=== PATIENT | female | born 1970 | race Caucasian/White ===

== ENCOUNTER → 2020-09-12 16:04 | Outpatient (BNVA) | payer MEDICAID, SELFPAY | PROVIDERS: Referring Provider Family Medicine; Visit Provider Podiatrist Foot & Ankle Surgery | DX: M79.673 Pain in unspecified foot (principal) | CPT/HCPCS: 73630 ==

== ENCOUNTER 2020-09-19 13:04 | Outpatient (CLI) | payer MEDICAID, SELFPAY | END 2020-09-19 13:05 | disposition home or self-care (01) | LOC: WOUND 13:05 | PROVIDERS: Visit Provider Thoracic Surgery (Cardiothoracic Vascular Surgery) | DX: E11.621 Type 2 diabetes mellitus with foot ulcer (principal); L97.522 Non-pressure chronic ulcer of other part of left foot with fat layer exposed; Z89.511 Acquired absence of right leg below knee | CPT/HCPCS: 11042; 11045; 99214 ==

== ENCOUNTER 2020-09-21 08:04 | Outpatient (CLI) | payer MEDICAID, SELFPAY ==
--- NOTE | 2020-09-21 08:15 | CT_ITS ---
WS: [id number] CT ANGIOGRAPHY OF THE ABDOMINAL AORTA WITH RUNOFF TO THE ANKLES HISTORY: PAIN OF LEFT LOWER EXTREMITY/ PVD TECHNIQUE: Arterial injection is performed during imaging to evaluate the aorta and runoff vessels to the ankles. MIP and volume rendering imaging has also been performed. All images are reviewed. All C T scans at [facility] use at least one of these dose optimization techniques: automated ex posure control; mA and/or kV adjustment per patient size (includes targeted exams where dose is match ed to clinical indication); or iterative reconstruction. Contrast: Omnipaque 350; 95 mL IV. DLP: 1678.14 mGy.cm COMPARISON: None available. Lung bases are clear. Mild cardiomegaly. Hepatic steatosis. Moderate to severe diffuse chronic consti pation. Enlarged heterogeneous uterus. Probably due to fibroids. Abdominal aorta: Moderate atherosclerotic plaque throughout the abdominal aorta with intimal thickeni ng. AP diameter of the enhancing lumen is 7 mm distally. Celiac axis and SMA are intact with good enh ancement. Both renal arteries are normally enhancing. Inferior mesenteric artery is not visualized an d may be occluded. Both kidneys are enhancing normally. RIGHT lower extremity arterial system: Multifocal plaques throughout the RIGHT common iliac artery an d the external iliac artery. Stenosis near 50% in the distal common iliac artery. Plaque and intimal thickening in the femoral artery. High-grade stenosis involving the proximal SFA and also the proxima l deep profunda. There is extensive plaque and intimal thickening throughout the SFA to Chas's james l. At Chas's canal there is a very high-grade stenosis. Multifocal areas of plaque with high-grade occlusions in the popliteal artery. Patient is status post [id number] amputation. Multifocal areas of stenosis ranging from 55-75% in the superficial and popliteal femoral arteries. LEFT lower extremity arterial system: Calcified plaque and intimal thickening multifocal throughout t he LEFT common iliac and external iliac artery. Multifocal areas of mild stenoses. No high-grade sten osis. Heavy calcification in the distal internal iliac artery. Multifocal areas of [id number] s tenosis throughout the femoral artery and the SFA. High-grade stenosis involving the distal SFA near Chas's canal. There is dense calcification in the popliteal artery is very small caliber runoff to the ankles. Calcifications scattered throughout the peroneal artery does appear completely occluded i n places. Runoff to the foot is predominantly via the anterior and posterior tibial arteries. CT/CT angio abd aorta runof [id number] IMPRESSION: 1. High-grade stenoses in Chas's canal through the popliteal artery on the R IGHT with near occlusions. There are additional multifocal areas of stenoses th roughout the SFA greater than 50%. 2. High-grade stenosis proximal LEFT SFA, greater than 70%. 3. Additional high-grade stenosis at Chas's canal and popliteal artery on th e LEFT. 4. Below the knee amputation on the RIGHT. 5. Extensive atherosclerotic plaque with intimal thickening and narrowing of t he lumen involving the aorta. Maximum diameter of the distal abdominal aorta is 7 mm. 6. Small caliber but patent anterior and posterior tibial arteries on the LEFT with runoff to the ankle. Peroneal artery is likely occluded.
[2020-09-21] MEDS: iohexol 350 mg/mL 100 mL Btl IV (08:45)
== END 2020-09-21 08:05 | disposition home or self-care (01) ==
PROVIDERS: PCP Family Medicine; Visit Provider Family Medicine
DX: M79.605 Pain in left leg (principal); I73.9 Peripheral vascular disease, unspecified; I70.8 Atherosclerosis of other arteries; Z89.511 Acquired absence of right leg below knee
CPT/HCPCS: 75635

== ENCOUNTER 2023-12-01 05:49 | Inpatient (IN) | payer MEDICAID, SELFPAY ==
[2023-12-01] VITALS (13 sets, daily range): BP systolic 113–185; BP diastolic 59–108; PULSE 83–108; RESP 16–29; TEMP 36.3–37; O2SAT 90–98
--- NOTE | 2023-12-01 05:50 | PC.NURSE ---
Patient arrived from [facility] and settled in room 112-1, attached to telemetry, and obtained vital signs. was sent message via voalte to make him aware of patient arriving on unit.
--- NOTE | 2023-12-01 06:32 | USCV_ITS ---
IsaczulmaJacquelin Age: 53 Gender: F : 1970 Exam Date: 12/01/2023 07:37 Ordering Phys: Tamir Rubio MD Technologist: Exam [place] [facility] [place]: chf cad BP: 136 / 86 HR: 0 Rhythm: Sinus Technical Quality: Adequate MEASUREMENTS (Male / Female) Normal Values 2D ECHO LV Diastolic Diameter PLAX 5.1 cm 4.2 - 5.9 / 3.9 - 5.3 cm IVS Diastolic Thickness 0.8 cm 0.6 - 1.0 / 0.6 - 0.9 cm IVS Systolic Thickness 1.2 cm LVPW Diastolic Thickness 1.0 cm 0.6 - 1.0 / 0.6 - 0.9 cm LVPW Systolic Thickness 1.2 cm LVOT Diameter 2.1 cm LV Ejection Fraction 2D Teich 22.3 % LV Ejection Fraction MOD 2C 30.4 % LV Ejection Fraction 2C AL 0.0 % LA Diameter 3.9 cm M-MODE LA Ao Ratio MM 1.2 AV Cusp Separation MM 1.8 cm DOPPLER AV Peak Velocity 98.0 cm/s LVOT Peak Velocity 63.0 cm/s AV Area Cont Eq vti 2.4 cm squared AV Area Cont Eq pk 2.2 cm squared MV Peak Velocity 209.0 cm/s MV Area PHT 1.8 cm squared Mitral E to A Ratio 1.0 TR Peak Velocity 260.0 cm/s TR Peak Gradient 27.0 mmHg TV Peak E Velocity 95.0 cm/s Right Atrial Pressure 3.0 mmHg Pulmonary Artery Systolic Pressu 30.0 mmHg PV Peak Velocity 62.0 cm/s FINDINGS Left Ventricle Left ventricle is normal in size. LV systolic function is severely reduced with EF of 25-30%. Severe global hypokinesis. Right Ventricle Grossly normal Right Atrium Normal in size Left Atrium Dilated Mitral Valve Mitral valve annuloplasty noted. Mild to moderate mitral regurgitation. Mild to moderate mitral stenosis with mean gradient of 6.4 mmHg. Aortic Valve Structurally normal aortic valve. No significant stenosis. Mild aortic regurgitation. Tricuspid Valve Mild tricuspid regurgitation. Pulmonary artery systolic pressure is normal. Pulmonic Valve Mild pulmonic regurgitation. Pericardium Normal Aorta Normal in size IVC Not well-visualized CONCLUSIONS LV systolic function is severely reduced with EF of 25 to 30%. Left atrial dilation. Mitral valve annuloplasty noted. Mild to moderate mitral regurgitation mild to moderate mitral stenosis. Mild aortic regurgitation Mild tricuspid regurgitation Mild pulmonic regurgitation No comparison studies are available Andrés Adams MD (Electronically Signed) Final Date: 01 December 2023 11:26 S
--- NOTE | 2023-12-01 07:43 | USCV_ITS ---
Jacquelin Fry Age: 53 Gender: F : 1970 Exam Date: 12/01/2023 08:24 Ordering Phys: Matthieu Agudelo MD Technologist: Exam Location: [facility] [place] Indication: lt leg swelling PROCEDURES: Venous duplex imaging was performed in only the left lower extremity. The following venous structures were evaluated: common femoral vein, profunda vein, proximal portion of the greater saphenous vein, superficial femoral vein, and the popliteal vein. In addition, the posterior tibial and peroneal trunk were evaluated. FINDINGS: Normal 2-D Doppler and augmentation and compressibility throughout the lower extremity venous structures. Additional imaging through the proximal calf veins also reveals no thrombus. Limited evaluation of the greater saphenous vein is patent with no thrombus. CONCLUSIONS No DVT left lower extremity. Dr. Fatou Herr DO (Electronically Signed) Final Date: 01 December 2023 08:55 S
--- NOTE | 2023-12-01 07:45 | P.HP_ITS ---
Providers/Chief Complaint Admitting Physician: Matthieu Agudelo MD Primary Care Provider: Slade Brandon Chief Complaint: Chest Pain History of Present Illness Jacquelin Fry is a 53 year old female [place] [facility] [place] who reports she has been feeling short of breath for the last week, with increased coughing and wheezing. She states she is felt some swelling in her lower extremities, but not so much it seems out of the ordinary. No hemoptysis, fever, nausea, vomiting, or diarrhea. She denies ever being told she has had COPD before. She states cough is productive of some yellowish to green sputum. No chest pain or blood in stool. She reports she does smoke, but is quitting after this hospital stay. We had an extensive discussion regarding CODE STATUS, and she prefers to be DNR at this point with her given medical problems. She reports to me she has not told her daughter, which she lives with. She received IV Lasix 40 mg and IV metoprolol 5 mg at the outside facility around 2 AM in the morning. Review of Systems General: Reports: 10 or more systems reviewed and unremarkable except in HPI and below Card: Reports: swelling of feet/ankles; Denies: chest pain Resp: Reports: dyspnea, productive cough and wheezing GI: Denies: abdominal pain, nausea, vomiting, hematochezia or melena Medications/Allergies Home Medications Medication Instructions Recorded Confirmed Last Taken Type aspirin 81 mg tablet,delayed 81 mg PO DAILY 09/12/20 12/01/23 11/30/23 History release atorvastatin 40 mg tablet 40 mg PO DAILY 09/12/20 12/01/23 11/29/23 History carvedilol 6.25 mg tablet (Coreg) 6.25 mg PO BID 09/12/20 12/01/23 11/30/23 09:00 History furosemide 40 mg tablet (Lasix) 40 mg PO DAILY 09/12/20 12/01/23 11/30/23 History insulin aspart U-100 100 unit/mL See Rx Instructions .Route .COMPLEX 09/12/20 12/01/23 Unknown History subcutaneous solution (Novolog U-100 Insulin aspart) insulin glargine 100 unit/mL 22 unit SUBCUT BID 09/12/20 12/01/23 Unknown History subcutaneous solution (Lantus U-100 Insulin) losartan 25 mg tablet 25 mg PO DAILY 09/12/20 12/01/23 11/30/23 History potassium chloride 20 mEq 20 meq PO DAILY 09/12/20 12/01/23 11/30/23 History tablet,extended release ascorbic acid (vitamin C) 500 mg 500 mg PO DAILY 12/01/23 12/01/23 11/30/23 History tablet blood sugar diagnostic 12/01/23 12/01/23 Unknown History blood-glucose meter 12/01/23 12/01/23 Unknown History fenofibrate nanocrystallized 145 145 mg PO DAILY 12/01/23 12/01/23 Unknown History mg tablet lancets 12/01/23 12/01/23 Unknown History multivitamin,tx-minerals 1 tab PO DAILY 12/01/23 12/01/23 Unknown History Allergies Allergy/AdvReac Type Severity Reaction Status Date / Time codeine Allergy hives Verified 09/12/20 16:17 PFSH Acute PFSH: Medical History (Updated 12/01/23 @ 07:56 by Matthieu Agudelo MD) Hyperlipidemia Hypertension Peripheral neuropathy PAD (peripheral artery disease) Known severe disease to the left lower extremity which she reports is inoperable CAD (coronary artery disease) Diabetes Congestive heart failure Surgical History (Updated 12/01/23 @ 07:48 by Matthieu Agudelo MD) 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 H/O mitral valve repair Hx of CABG Family History Mother Diabetes Father Diabetes Social History Smoking and tobacco/nicotine status: current every day tobacco/nicotine user cigarettes Packs smoked per day: 1 Alcohol intake: current Alcohol intake frequency: holidays/special occasions only Substance/Drug Use: never Vitals/I&O/Wt Last Vital Signs Temp 97.4 F L 12/01/23 06:23 Pulse 95 12/01/23 06:23 Resp 29 H 12/01/23 06:23 BP 185/108 12/01/23 06:23 Pulse Ox 94 12/01/23 06:23 O2 Del Method Room Air 12/01/23 06:23 Weight last 48 hrs Weight 57.243 kg Physical Exam Narrative: General exam is a white female, occasional coughing fits, no distress HEENT: Atraumatic and normocephalic. Oropharynx clear Neck is supple no lymphadenopathy or thyromegaly Cardiovascular regular rate and rhythm, no murmur, borderline tachycardic. Blood pressure now 130/80 Lungs crackles at the bases, most prominent on the left. Occasional wheeze. Abdomen is soft with positive bowel sounds. No obvious organomegaly exam is deferred 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 Lower extremity is swollen from the knee down. Some abrasions are noted. Extremity is cool. Skin see findings above Neuro no focal deficits Data Other Labs: Laboratories from [place] extensively reviewed as well as x-rays. CTA demonstrates no PE, bilateral effusions, consolidations lower lobes bilaterally. White blood cell count 11.9, hemoglobin 13.4, platelet count 613 Chest x-ray congestion both lungs, bases EKG which I reviewed demonstrates heart rate of 107 consistent with sinus tachycardia, nonspecific ST-T wave changes inferiorly LFTs are normal Sodium 131, potassium 5.7 with repeat of 5.2. Chloride 94, bicarb 22, BUN 27, creatinine 1.34 Glucose 216 Magnesium 2.1 Troponin 99 with repeat of 83 Influenza and COVID-negative D-dimer 0.87 BNP 50,000 A&P Assessment and plan (1) Congestive heart failure: Patient presents with acute congestive heart failure, likely systolic Echocardiogram to clarify Lasix given in the emergency department at [place]. Continue 40 mg IV every 12 hours while watching electrolytes and kidney function closely as Lasix is a potentially renal toxic medication Obtain old echocardiogram from [facility] in [place], for comparison Troponins at [place] show no significant trend. Do not need to repeat here. She was markedly hypertensive at outside institution. I believe this was likely secondary to her heart failure. Blood pressure is coming down with treatment here. Continue beta-rae at current dose Hold ELMER inhibitor, likely briefly, until potassium is normal (2) Pneumonia: Patient presents with pneumonia. She has significant sputum production She has consolidation on chest x-ray White blood cell count slightly elevated CBC tomorrow Sputum culture Rocephin, Zithromax Blood cultures low yield currently. Reconsider if fever develops. (3) COPD with acute exacerbation: Patient has COPD exacerbation manifested by wheezing. She is a long-term smoker. Prednisone 40 mg daily DuoNeb every 4 hours Budesonide twice daily (4) Acute kidney injury: Likely cardiorenal. Cannot completely exclude chronic kidney disease Avoid anti-inflammatories Monitor renal function closely with repeat testing tomorrow (5) Hyperkalemia: Potassium was already coming down with repeat lab at the other facility Repeat potassium tomorrow Hold ARB currently Do not give any potassium currently. (6) PAD (peripheral artery disease): Patient with known severe peripheral vascular disease to left lower extremity Monitor for severe skin breakdown Continue aspirin (7) Diabetes: Continue long-acting insulin, but reduced dosing secondary to renal dysfunction. Prednisone may also increase sugar. Continue to follow closely. Plan Tobacco dependency. Encourage abstaining. She refuses nicotine patch Multiple other medical problems as outlined in past medical history Allow natural . Extensive discussion with the patient. She exhibits understanding. She still wants to be aggressively treated, just not receive CPR, intubation, etc. Lovenox for DVT prophylaxis Attestations Medical Necessity Statement*: Will require greater than 2 midnight stay for evaluation and treatment of pneumonia and CHF Diagnoses Congestive heart failure I50.9 Pneumonia J18.9 COPD with acute exacerbation J44.1 Acute kidney injury N17.9 Hyperkalemia E87.5 PAD (peripheral artery disease) I73.9 Diabetes E11.9 Time Spent (min) 61
[2023-12-01 08:27] LABS: Glucose Point of Care 186 mg/dL (70-110)
[2023-12-01] MEDS: azithromycin 500 MG in sodium chloride 0.9% 250 ML 250 MG IV (08:51)
[2023-12-01] MEDS: atorvastatin 40 mg Tablet PO (08:51)
[2023-12-01] MEDS: cefTRIAXone 1,000 MG in sodium chloride 0.9% (plus) 50 ML 100 MG IV (08:51)
[2023-12-01] MEDS: predniSONE 20 mg Tablet 40 MG PO (08:51)
[2023-12-01] MEDS: fenofibrate 145 mg Tablet PO (08:51)
[2023-12-01] MEDS: aspirin 81 mg EC Tablet PO (08:51)
[2023-12-01] MEDS: insulin lispro 100 unit/1 mL SUBCUT ×2 (08:52→17:27)
[2023-12-01] MEDS: enoxaparin 40 mg/0.4 mL Syringe SUBCUT (08:53)
[2023-12-01] MEDS: ipratropium-albuterol 3 mL Neb INHALATION ×4 (08:57→20:09)
[2023-12-01] MEDS: budesonide 0.5 mg/2 mL Neb INHALATION ×2 (08:57→20:09)
[2023-12-01] MEDS: insulin glargine 100 units/1 mL 15 UNIT SUBCUT (09:52)
[2023-12-01 12:10] LABS: Glucose Point of Care 74 mg/dL (70-110)
[2023-12-01 17:26] LABS: Glucose Point of Care 176 mg/dL (70-110)
[2023-12-01] MEDS: FUROsemide 10 mg/mL SDV 4mL 40 MG IVP (17:27)
[2023-12-01] MEDS: acetaminophen 325 mg Tablet 650 MG PO (17:27)
[2023-12-01 20:32] LABS: Glucose Point of Care 140 mg/dL (70-110)
[2023-12-02] VITALS (70 sets, daily range): BP systolic 81–125; BP diastolic 66–85; PULSE 81–124; RESP 9–41; TEMP 36.5–37.2; O2SAT 89–100
[2023-12-02 05:05] LABS: Basophils % 0.3 %; Eosinophils % 0.1 %; Hematocrit 32.1 % (36-47); Lymphocytes % 34.4 %; Mean Corpuscular HGB Conc 31.8 g/dL (30-55); Mean Corpuscular Hemoglobin 27.8 pg (27-33); Mean Corpuscular Volume 87.5 fl (85-98); Mean Platelet Volume 10.5 fL (7.4-10.4); Monocytes # 0.5 10^3/uL (0.2-0.9); Monocytes % 6.1 %; Neutrophils # 5.04 10^3/uL (1.8-7.7); Neutrophils % 58.8 %; Nucleated Red Blood Cells % 0 %; Platelet Count 492 10^3/cmm (157-399); Red Blood Count 3.67 10^6/uL (3.85-5.65); Red Cell Distribution Width 15.4 % (12.1-15.1); White Blood Count 8.58 10^3/uL (3.29-11.43)
[2023-12-02 05:37] LABS: Alanine Aminotransferase 8 U/L (0-33); Albumin Level 2.6 g/dL (3.5-5.2); Alkaline Phosphatase 95 U/L (35-105); Anion Gap 16.9 (5-19); Aspartate Amino Transferase 17 U/L (0-32); Blood Urea Nitrogen 31 mg/dL (6-20); Calcium 8.7 mg/dL (8.5-10.5); Carbon Dioxide 22 mmol/L (22-29); Chloride 97 mmol/L (98-107); Globulin 3.2 g/dL (1.3-4.6); Glomerular Filtration Rate 31.7 mL/min (90-130); Glucose 125 mg/dL (65-115); Osmolality Calculated 280 mOsm/kg (285-295); Potassium 4.9 mmol/L (3.5-5.1); Sodium 131 mmol/L (136-145); Thyroid Stimulating Hormone 1.39 uIU/mL (0.27-4.20); Total Bilirubin 0.2 mg/dL (0.15-1.2); Total Protein 5.8 g/dL (6.6-8.7)
[2023-12-02] MEDS: FUROsemide 10 mg/mL SDV 4mL 40 MG IVP (05:52)
[2023-12-02] MEDS: enoxaparin 40 mg/0.4 mL Syringe SUBCUT (06:24)
[2023-12-02] MEDS: cefTRIAXone 1,000 MG in sodium chloride 0.9% (plus) 50 ML 100 MG IV (06:24)
[2023-12-02] MEDS: ipratropium-albuterol 3 mL Neb INHALATION ×4 (06:27→20:05)
[2023-12-02] MEDS: budesonide 0.5 mg/2 mL Neb INHALATION ×2 (06:27→20:05)
[2023-12-02 06:30] LABS: Glucose Point of Care 117 mg/dL (70-110)
[2023-12-02] MEDS: azithromycin 500 MG in sodium chloride 0.9% 250 ML 250 MG IV (09:01)
[2023-12-02] MEDS: benzonatate 100 mg Capsule PO (09:02)
[2023-12-02] MEDS: fenofibrate 145 mg Tablet PO (09:02)
[2023-12-02] MEDS: predniSONE 20 mg Tablet 40 MG PO (09:02)
[2023-12-02] MEDS: aspirin 81 mg EC Tablet PO (09:02)
[2023-12-02] MEDS: atorvastatin 40 mg Tablet PO (09:02)
[2023-12-02] MEDS: insulin glargine 100 units/1 mL 15 UNIT SUBCUT (09:11)
--- NOTE | 2023-12-02 09:41 | P.PN_ITS ---
Documented by User: Jesise Borrego, ALETHA STDFLIP 12/02/23 10:05 Subjective 2 Subjective: Patient resting in bed on room air, she states that she does not feel any better this morning. She continues to have a persistent productive cough of thick yellow sputum. Denies chest pain , shortness of breath at this time. Medications: Reviewed: Yes Vitals/I&O/Wt Last Vital Signs Temp 98.1 F 12/02/23 07:09 Pulse 100 12/02/23 07:09 Resp 20 H 12/02/23 07:09 BP 115/79 12/02/23 07:09 Pulse Ox 97 12/02/23 07:09 O2 Del Method Room Air 12/02/23 07:09 12/01/23 12/02/23 12/02/23 22:59 06:59 14:59 Intake Total 480 / 1240 480 / 1720 290 / 290 Output Total 0 / 550 900 / 900 Balance 480 / 690 480 / 1170 -610 / -610 Weight last 48 hrs Weight 129 lb Weight 126 lb 3.2 oz Physical Exam 2 Narrative: General exam is a white female, occasional coughing fits, no distress HEENT: Atraumatic and normocephalic. Oropharynx clear Neck is supple, no lymphadenopathy or thyromegaly Cardiovascular regular rate and rhythm, no murmur, borderline tachycardic. Blood pressure now 130/80 Lungs diminished breath sounds bilaterally, crackles noted in left lower lobe. Abdomen is soft with positive bowel sounds. No obvious organomegaly exam is deferred 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 Lower extremity is swollen from the knee down. Some abrasions are noted. Extremity is cool. Skin see findings above Neuro no focal deficits Data 12/02/23 04:11 12/02/23 04:11 Other Labs: Awaiting UA. Micro: Microbiology 12/01/23 09:55 Gram Stain - Final Sputum - Expectorated Sputum A&P Assessment and plan (1) Congestive heart failure: Patient presents with acute congestive heart failure, likely systolic Echocardiogram completed 12/02/23 EF noted to 25%. Awaiting old echocardiogram from [facility] in [place], for comparison. Hold IVP Lasix due to Inductor Tester 1.7 and BUN 31. She was markedly hypertensive at outside institution, likely secondary to her heart failure. Blood pressure is coming down with treatment. Continue beta-rae at current dose Continue to hold ELMER inhibitor,due to worsening kidney function. (2) Pneumonia: Patient presents with pneumonia, has significant sputum production. She has consolidation on chest x-ray 12/01/23. CBC tomorrow Sputum culture pending. Continue Rocephin, Zithromax. Blood cultures low yield currently. Will reconsider if fever develops. (3) COPD with acute exacerbation: Patient has COPD exacerbation manifested by wheezing. She is a long-term smoker. Continue Prednisone 40 mg daily Continue DuoNeb every 4 hours Continue Budesonide twice daily (4) Acute kidney injury: Likely cardiorenal. Cannot completely exclude chronic kidney disease Avoid anti-inflammatories Monitor renal function closely with repeat testing tomorrow (5) Hyperkalemia: Potassium 4.9 this am 12/02. Repeat potassium tomorrow Continue to hold ARB currently Do not give any potassium currently. (6) PAD (peripheral artery disease): Patient with known severe peripheral vascular disease to left lower extremity Monitor for severe skin breakdown Continue aspirin (7) Diabetes: Continue long-acting insulin, but reduced dosing secondary to renal dysfunction. Prednisone may also increase blood glucose. Continue to follow closely. Plan Tobacco dependency. Encourage abstaining. She refuses nicotine patch Multiple other medical problems as outlined in past medical history Allow natural . Extensive discussion with the patient. She exhibits understanding. She still wants to be aggressively treated, just not receive CPR, intubation, etc. Lovenox for DVT prophylaxis Coding Level of Care Code 47693 Diagnoses Congestive heart failure I50.9 Pneumonia J18.9 COPD with acute exacerbation J44.1 Acute kidney injury N17.9 Hyperkalemia E87.5 PAD (peripheral artery disease) I73.9 Diabetes E11.9 Time Spent (min) 24 Documented by User: Matthieu Agudelo MD 12/02/23 10:10 Physical Exam 2 Narrative: General exam is a white female, occasional coughing fits, no distress HEENT: Atraumatic and normocephalic. Oropharynx clear Neck is supple, no lymphadenopathy or thyromegaly Cardiovascular regular rate and rhythm, no murmur, borderline tachycardic. Blood pressure now 130/80 Lungs diminished breath sounds bilaterally, crackles noted in left lower lobe. Abdomen is soft with positive bowel sounds. 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 Lower extremity is swollen from the knee down. Some abrasions are noted. Extremity is cool. Edema on the left is significantly better than yesterday. Data 12/02/23 04:11 12/02/23 04:11 A&P Assessment and plan (1) Congestive heart failure: Patient presents with acute congestive heart failure, likely systolic Echocardiogram completed 12/02/23 EF noted to 25%. Awaiting old echocardiogram from [facility] in [place], for comparison. Hold IVP Lasix due to Inductor Tester 1.7 and BUN 31. She appears compensated currently. She was markedly hypertensive at outside institution, likely secondary to her heart failure. Blood pressure is coming down with treatment. Continue beta-are at current dose Continue to hold ELMER inhibitor,due to worsening kidney function. (2) Pneumonia: (3) COPD with acute exacerbation: (4) Acute kidney injury: (5) Hyperkalemia: (6) PAD (peripheral artery disease): (7) Diabetes: Attestations 2 Medical Necessity Statement*: Needs continued hospitalization for IV antibiotics related to pneumonia. Diagnoses Congestive heart failure I50.9 Pneumonia J18.9 COPD with acute exacerbation J44.1 Acute kidney injury N17.9 Hyperkalemia E87.5 PAD (peripheral artery disease) I73.9 Diabetes E11.9 Time Spent (min) 24
[2023-12-02 11:28] LABS: Glucose Point of Care 190 mg/dL (70-110)
[2023-12-02] MEDS: insulin lispro 100 unit/1 mL SUBCUT ×3 (12:00→20:07)
--- NOTE | 2023-12-02 16:29 | P.CONIM_ITS ---
Providers/Reason For Consult 2 Consulting Physician/Specialty*: GUILLERMO Riley MD/cardiology Reason for Consult*: Patient with a cardiomyopathy and congestive heart failure Requesting Physician: Dr. Agudelo Attending Physician: Matthieu Agudelo MD Primary Care Provider: Slade Brandon History of Present Illness History of Present Illness Jacquelin Fry is a 53 year old female With a history of coronary disease,Status post Four-vessel coronary artery bypass surgery, complaints of progressive shortness of breath. She was found to be in congestive heart failure. Echocardiogram revealed LV ejection fraction 25%. Cardiology consult is requested for further cardiac evaluation and recommendations. This patient apparently has been at baseline state of health up until a week ago when she started having cough and respiratory infection-like symptoms. For the last 2 days, she has been having shortness of breath which has been progressively getting worse.She has no chest pain or chest tightness. She has been coughing up a lot of sputum. No fever or chills. According the patient, she had four-vessel coronary bypass surgery in 2019 at the [facility]. She also had a mitral valve repair at that time.Prior to the surgery, she presented to the hospital with complaints of congestive heart failure. Subsequent cardiacCatheterization revealed extensive coronary disease for which she underwent Coronary artery bypass surgery.The details are not available at this time.The LV ejection fraction prior to surgery also is not known at this time. Patient had a below-knee amputation on the right side for staph infection/osteomyelitis.She had a transmetatarsal amputation in 2020 for Gangrene.She has a history of diabetes for the last 15 years or so.The diabetes has been uncontrolled. She also has a history of a diabetic neuropathy and? Nephropathy.She has a history of smoking abuse and is known to have emphysema/reactive airway disease.Also has a history of dyslipidemia. She is known to have peripheral artery disease. No history of CVA. No history for any liver disease or bleeding disorders. She smoked half to 1 pack a day for 30 years or so.No alcohol abuse or any other substance abuse. I reviewed the medical records from the [facility] in [place]. Patient had a four-vessel coronary bypass surgery. She had a saphenous venous graft to the RCA andLAD. Sequential venous graft to the intermedius artery and diagonal artery. Endarterectomy of the LAD. Mitral valvuloplasty with a 28 mm annular ring. Review of Systems 2 Narrative: CONSTITUTIONAL: No fever or chills. EYES: No blurring of vision or other visual disturbances lately. ENT: No hoarseness of voice, auditory disturbances or sore throat. CARDIOVASCULAR: As mentioned above. RESPIRATORY: Productive cough, bringing evaluate sputum GASTROINTESTINAL: No hematemesis or melena. GENITOURINARY: No dysuria or hematuria. INTEGUMENTARY: No skin rashes or history of skin cancer. NEURO: No transient ischemic attacks or amaurosis. PSYCHIATRIC: No history of psychosis or major depression. HEMATOLOGIC: No bleeding disorders or significant anemia. ENDOCRINE: No history of polyuria or polydipsia. MUSCULOSKELETAL: No recent joint pain or swelling. ALLERGY/IMMUNOLOGY: As mentioned above. Medications/Allergies Home Medications Medication Instructions Recorded Confirmed Last Taken Type aspirin 81 mg tablet,delayed 81 mg PO DAILY 09/12/20 12/01/23 11/30/23 History release atorvastatin 40 mg tablet 40 mg PO DAILY 09/12/20 12/01/23 11/29/23 History carvedilol 6.25 mg tablet (Coreg) 6.25 mg PO BID 09/12/20 12/01/23 11/30/23 09:00 History furosemide 40 mg tablet (Lasix) 40 mg PO DAILY 09/12/20 12/01/23 11/30/23 History insulin aspart U-100 100 unit/mL See Rx Instructions .Route .COMPLEX 09/12/20 12/01/23 Unknown History subcutaneous solution (Novolog U-100 Insulin aspart) insulin glargine 100 unit/mL 22 unit SUBCUT BID 09/12/20 12/01/23 Unknown History subcutaneous solution (Lantus U-100 Insulin) losartan 25 mg tablet 25 mg PO DAILY 09/12/20 12/01/23 11/30/23 History potassium chloride 20 mEq 20 meq PO DAILY 09/12/20 12/01/23 11/30/23 History tablet,extended release ascorbic acid (vitamin C) 500 mg 500 mg PO DAILY 12/01/23 12/01/23 11/30/23 History tablet blood sugar diagnostic 12/01/23 12/01/23 Unknown History blood-glucose meter 12/01/23 12/01/23 Unknown History fenofibrate nanocrystallized 145 145 mg PO DAILY 12/01/23 12/01/23 Unknown History mg tablet lancets 12/01/23 12/01/23 Unknown History multivitamin,tx-minerals 1 tab PO DAILY 12/01/23 12/01/23 Unknown History Allergies Allergy/AdvReac Type Severity Reaction Status Date / Time codeine Allergy hives Verified 09/12/20 16:17 morphine Allergy ADR-Itching Verified 12/02/23 10:46 Current Medications Generic Name Dose Route Start Last Admin Trade Name Freq PRN Reason Stop Dose Admin Acetaminophen 650 mg 12/01/23 07:39 12/01/23 17:27 Acetaminophen 325 Mg Tablet PO 650 mg Q6H PRN Administration Mild/Mod Pain Or Temp >/= 101 Albuterol/Ipratropium 3 ml 12/01/23 12:00 12/02/23 16:07 Ipratropium-Albuterol 3 Ml Neb INHALATION 3 ml Q4H.RESPIRATORY CARMEN Administration Aspirin 81 mg 12/01/23 09:00 12/02/23 09:02 Aspirin 81 Mg Ec Tablet PO 81 mg DAILY CARMEN Administration Atorvastatin Calcium 40 mg 12/01/23 09:00 12/02/23 09:02 Atorvastatin 40 Mg Tablet PO 40 mg DAILY CARMEN Administration Benzonatate 100 mg 12/01/23 10:31 12/02/23 09:02 Benzonatate 100 Mg Capsule PO 100 mg TID PRN Administration COUGH Budesonide 0.5 mg 12/01/23 08:00 12/02/23 07:36 Budesonide 0.5 Mg/2 Ml Neb INHALATION Not Given BID.RESPIRATORY CARMEN Enoxaparin Sodium 40 mg 12/01/23 07:45 12/02/23 06:24 Enoxaparin 40 Mg/0.4 Ml Syringe SUBCUT 40 mg Q24H CARMEN Administration Fenofibrate 145 mg 12/01/23 09:00 12/02/23 09:02 Fenofibrate 145 Mg Tablet PO 145 mg DAILY CARMEN Administration Ceftriaxone Sodium 1,000 mg/ 50 mls @ 100 mls/hr 12/01/23 07:45 12/02/23 07:09 Sodium Chloride IV Infused Q24H CARMEN Infusion Protocol Azithromycin 500 mg/ Sodium 250 mls @ 250 mls/hr 12/01/23 07:45 12/02/23 10:05 Chloride IV Infused Q24H CARMEN Infusion Protocol Insulin Glargine 15 unit 12/02/23 09:00 12/02/23 09:11 Insulin Glargine 100 Units/1 Ml SUBCUT 15 unit DAILY CARMEN Administration Insulin Human Lispro 0 unit 12/01/23 08:00 12/02/23 12:00 Insulin Lispro 100 Unit/1 Ml SUBCUT 4 unit WM&BEDTIME CARMEN Administration Protocol Prednisone 40 mg 12/01/23 09:00 12/02/23 09:02 Prednisone 20 Mg Tablet PO 40 mg DAILY CARMEN Administration PFSH Acute 2 PFSH: Medical History Hyperlipidemia Hypertension Peripheral neuropathy PAD (peripheral artery disease) Known severe disease to the left lower extremity which she reports is inoperable CAD (coronary artery disease) Diabetes Congestive heart failure Surgical History 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 H/O mitral valve repair Hx of CABG Family History Mother Diabetes Father Diabetes Social History Smoking and tobacco/nicotine status: current every day tobacco/nicotine user cigarettes Packs smoked per day: 1 Alcohol intake: current Alcohol intake frequency: holidays/special occasions only Substance/Drug Use: never Vitals/I&O/Wt Last Vital Signs Temp 97.7 F 12/02/23 11:20 Pulse 103 H 12/02/23 16:12 Resp 16 12/02/23 16:06 BP 81/67 12/02/23 11:20 Pulse Ox 95 12/02/23 16:06 O2 Del Method Room Air 12/02/23 16:06 12/02/23 12/02/23 12/02/23 06:59 14:59 22:59 Intake Total 480 / 1720 780 / 780 Output Total 0 / 550 900 / 900 Balance 480 / 1170 -120 / -120 Weight last 48 hrs Weight 129 lb Weight 126 lb 3.2 oz Physical Exam 2 Narrative: GENERAL: The patient is alert and oriented times three. Not in any acute distress. HEENT: No significant pallor, icterus or lymphadenopathy.Oral cavity: There are no mucous membrane lesions. NECK: Trachea appears to be central. No masses noted. No JVD or thyromegaly appreciated. RESPIRATORY: Chest is symmetrical. No intercostals muscle retraction or any accessory muscle activation. There is no chest wall tenderness. Breath sounds are heard bilaterally. No rales or rhonchi heard. No evidence of any consolidation. BREASTS: Deferred. HEART: The heart sounds are normal. No S3 or S4. Short systolic murmur in the lower sternal border. No diastolic murmurs. No pericardial rub ABDOMEN: No vessel pulsations or distention. No tenderness. No organomegaly appreciated. Bowel sounds are normally heard. : Deferred. RECTAL: Deferred. LYMPHATIC: No lymphadenopathy noted in the neck. EXTREMITIES: Below-knee amputation on the right side and transmetatarsal amputation on the left side. Femoral pulses are palpable but weak bilaterally. MUSCULOSKELETAL: No acute joint deformities or swelling SKIN: There are no significant rashes or ecchymosis NEUROPSYCHIATRIC: The patient is alert and oriented x3. Appears to be in a good mood. No tremors or rigidity noted. Data 12/02/23 04:11 12/02/23 04:11 Other Labs: Laboratory Last Values WBC 8.58 10^3/uL (3.29-11.43) 12/02/23 04:11 RBC 3.67 10^6/uL (3.85-5.65) L 12/02/23 04:11 Hgb 10.20 g/dL (11.27-16.99) L 12/02/23 04:11 Hct 32.1 % (36-47) L 12/02/23 04:11 MCV 87.5 fl (85-98) 12/02/23 04:11 MCH 27.8 pg (27-33) 12/02/23 04:11 MCHC 31.8 g/dL (30-55) 12/02/23 04:11 RDW 15.4 % (12.1-15.1) H 12/02/23 04:11 Plt Count 492 10^3/cmm (157-399) H 12/02/23 04:11 MPV 10.5 fL (7.4-10.4) H 12/02/23 04:11 Neut % (Auto) 58.8 % 12/02/23 04:11 Lymph % (Auto) 34.4 % 12/02/23 04:11 Rooks % (Auto) 6.1 % 12/02/23 04:11 Eos % (Auto) 0.1 % 12/02/23 04:11 Baso % (Auto) 0.3 % 12/02/23 04:11 Neut # (Auto) 5.04 10^3/uL (1.8-7.7) 12/02/23 04:11 Lymph # (Auto) 3.0 10^3/uL (0.8-4.8) 12/02/23 04:11 Rooks # (Auto) 0.5 10^3/uL (0.2-0.9) 12/02/23 04:11 Eos # (Auto) 0.0 10^3/uL (0.0-0.8) 12/02/23 04:11 Baso # (Auto) 0.0 10^3/uL (0.0-0.1) 12/02/23 04:11 Nucleated RBC % (auto) 0 % 12/02/23 04:11 Nucleated RBCs # 0.0 /100WBC 12/02/23 04:11 Sodium 131 mmol/L (136-145) L 12/02/23 04:11 Potassium 4.9 mmol/L (3.5-5.1) 12/02/23 04:11 Chloride 97 mmol/L (98-107) L 12/02/23 04:11 Carbon Dioxide 22 mmol/L (22-29) 12/02/23 04:11 Anion Gap 16.9 (5-19) 12/02/23 04:11 BUN 31 mg/dL (6-20) H 12/02/23 04:11 Creatinine 1.7 mg/dL (0.5-0.9) H 12/02/23 04:11 GFR Calculation 31.7 mL/min (90-130) L 12/02/23 04:11 Glucose 125 mg/dL (65-115) H 12/02/23 04:11 POC Glucose 306 mg/dL (70-110) H 12/02/23 17:35 Calculated Osmolality 280 mOsm/kg (285-295) L 12/02/23 04:11 Calcium 8.7 mg/dL (8.5-10.5) 12/02/23 04:11 Magnesium 2.0 mg/dL (1.7-2.3) 12/02/23 04:11 Total Bilirubin 0.2 mg/dL (0.15-1.2) 12/02/23 04:11 AST 17 U/L (0-32) 12/02/23 04:11 ALT 8 U/L (0-33) 12/02/23 04:11 Alkaline Phosphatase 95 U/L (35-105) 12/02/23 04:11 Total Protein 5.8 g/dL (6.6-8.7) L 12/02/23 04:11 Albumin 2.6 g/dL (3.5-5.2) L 12/02/23 04:11 Globulin 3.2 g/dL (1.3-4.6) 12/02/23 04:11 TSH 1.39 uIU/mL (0.27-4.20) 12/02/23 04:11 Urine Color Yellow (Yellow) 12/02/23 16:40 Urine Appearance Clear (CLEAR) 12/02/23 16:40 Urine pH 5 (5-7) 12/02/23 16:40 Ur Specific Binford 1.015 (1.005-1.030) 12/02/23 16:40 Urine Protein 3+ (Negative) H 12/02/23 16:40 Urine Glucose (UA) 1+ (Normal) H 12/02/23 16:40 Urine Ketones Negative (Negative) 12/02/23 16:40 Urine Blood Neg (Negative) 12/02/23 16:40 Urine Nitrate Negative (Negative) 12/02/23 16:40 Urine Bilirubin Neg (Negative) 12/02/23 16:40 Urine Urobilinogen Norm mg/dL (Negative) 12/02/23 16:40 Ur Leukocyte Esterase Negative (Negative) 12/02/23 16:40 Urine RBC 0-4 /hpf (0-2) H 12/02/23 16:40 Urine WBC 0-4 /hpf (0-5) H 12/02/23 16:40 Ur Squamous Epith Cells 5-10 /hpf (0-5) H 12/02/23 16:40 Amorphous Sediment Trace /hpf 12/02/23 16:40 Urine Bacteria 1+ /hpf (NONE) H 12/02/23 16:40 Fine Granular Casts 0-4 /lpf H 12/02/23 16:40 Urine Mucus 1+ /hpf 12/02/23 16:40 Urine Yeast 1+ /hpf H 12/02/23 16:40 Micro: Microbiology 12/01/23 09:55 Gram Stain - Final Sputum - Expectorated Sputum Sputum Culture - Preliminary Other data: CT angio of the abdominal aorta with run off 1. High-grade stenoses in Chas's canal through the popliteal artery on the RIGHT with near occlusions. There are additional multifocal areas of stenoses throughout the SFA greater than 50%. 2. High-grade stenosis proximal LEFT SFA, greater than 70%. 3. Additional high-grade stenosis at Chas's canal and popliteal artery on the LEFT. 4. Below the knee amputation on the RIGHT. 5. Extensive atherosclerotic plaque with intimal thickening and narrowing of the lumen involving the aorta. Maximum diameter of the distal abdominal aorta is 7 mm. 6. Small caliber but patent anterior and posterior tibial arteries on the LEFT with runoff to the ankle. Peroneal artery is likely occluded. Echocardiogram done overnight 12/01/2023 LV systolic function is severely reduced with EF of 25 to 30%. Left atrial dilation. Mitral valve annuloplasty noted. Mild to moderate mitral regurgitation mild to moderate mitral stenosis. Mild aortic regurgitation Mild tricuspid regurgitation Mild pulmonic regurgitation No comparison studies are available A&P Assessment and plan (1) Congestive heart failure: Patient has significant drop in the LV ejection fraction from 45% in in 2020 to 25-30% now. Possibility of underlying coronary ischemia causing this is a consideration. She may be treated with IV diuretics and other symptomatic measures. He also may need to try Entresto, once the heart failure is properly treated Qualifiers: Heart failure chronicity: acute on chronic Heart failure type: systolic Qualified Code(s): I50.23 - Acute on chronic systolic (congestive) heart failure (2) PAD (peripheral artery disease): Patient had the CTA and the findings are as mentioned above. (3) Acute kidney injury: This could be an acute on chronic kidney disease. The kidney function needs to be closely monitored (4) Ischemic cardiomyopathy: LV ejection fraction was 45% in 2020. Considering the possibility of ischemia causing worsening of LV systolic function, a Myocardial perfusion imaging would be appropriate. We may consider this tomorrow. (5) Diabetic peripheral neuropathy associated with type 2 diabetes mellitus: Received management of diabetes to be appropriate (6) Dyslipidemia: Continue on the current treatment (7) COPD with acute exacerbation: Management as per the primary Plan The other problems are Anemia Generalized emaciation DNR status Consult Attestations 2 Medical Necessity Statement: Based on the results of the above and also patient's clinical progress, further recommendations will be made. Thank you for the opportunity to evaluate this patient and make these recommendations. Coding Level of Care Code 00922 Diagnoses Acute on chronic systolic congestive heart failure I50.23 Heart failure chronicity: acute on chronic Heart failure type: systolic PAD (peripheral artery disease) I73.9 Acute kidney injury N17.9 Ischemic cardiomyopathy I25.5 Diabetic peripheral neuropathy associated with type 2 diabetes mellitus E11.42 Dyslipidemia E78.5 COPD with acute exacerbation J44.1
[2023-12-02 17:38] LABS: Glucose Point of Care 293 mg/dL (70-110)
[2023-12-02 17:38] LABS: Glucose Point of Care 306 mg/dL (70-110)
[2023-12-02] MEDS: metoprolol tartrate 25 mg Tablet 12.5 MG PO (18:33)
--- NOTE | 2023-12-02 18:44 | ECG_ITS ---
[facility] Test Date: 2023-12-03 Pat Name: Jacquelin Fry Department: Room: 112 Gender: Female Sleeve Baster: : 1970 Requested By: Luli Riley Order Number: [id number] Amberly MD: Luli Riley M.D. Interpretive Statements NAME OF STUDY: LEXISCAN SESTAMIBI STRESS TEST INDICATION: CHF, PROCEDURE: At the baseline, the EKG revealed normal sinus rhythm with PVCs. Poor R wave progression. Diffuse nonspecific ST-T changes.. The baseline heart was 91 bpm with a blood pressue of 125/91 mm of Hg Lexiscan was infused over a period of 20 seconds. A total of 0.4 milligrams of Lexiscan was infused. The stress phase was continued for a total of 5 minutes. Heart rate at the end of the stress phase was 100 bpm with a blood pressure 131/76 mm of Hg. The EKG at the peak infusion revealed slightly more prominent ST-T changes. Sestamibi was injected 20 seconds after the Lexiscan infusion. Heart rate at the end of the recovery phase was 100 bpm with a blood pressure of 128/72 mm of Hg. CONCLUSION: 1. No significant EKG changes with the LexiScan infusion 2. No LexiScan induced chest pain or cardiac arrhythmia 3. Normal blood pressure and heart rate response 4. Sestamibi/sestamibi perfusion scan pending; see separate report. Electronically Signed On 12-07-2023 9:22:55 RO[address] TESTER by Luli Riley M.D. [id number]
[2023-12-02 18:51] LABS: Specific Gravity, Urine 1.015 (1.005-1.030); Urine Appearance Clear (CLEAR); Urine Color Yellow (Yellow); pH Urine 5 (5-7)
[2023-12-02 18:52] LABS: Bilirubin Urine Neg (Negative); Blood Urine Neg (Negative); Glucose Urine UA 1+ (Normal); Ketones Urine Negative (Negative); Leukocyte Esterase Urine Negative (Negative); Nitrate Urine Negative (Negative); Protein Urine 3+ (Negative); Urobilinogen Urine Norm (Negative)
[2023-12-02 19:00] LABS: Amorphous Sediment Urine TRACE /hpf; Bacteria Urine 1+ /hpf; Fine Granular Casts Urine 0-4 /lpf; Mucus Urine 1+ /hpf; RBC Urine 0-4 /hpf (0-2); WBC Urine 0-4 /hpf (0-5)
[2023-12-02 19:01] LABS: Add Urine Culture? No
[2023-12-02 20:06] LABS: Glucose Point of Care 332 mg/dL (70-110)
[2023-12-03] VITALS (28 sets, daily range): BP systolic 88–131; BP diastolic 65–95; PULSE 87–109; RESP 5–34; TEMP 36.5–36.6; O2SAT 87–100
--- NOTE | 2023-12-03 03:33 | XRR_ITS ---
PROCEDURE INFORMATION: Exam: XR Chest Exam date and time: 12/03/2023 3:45 AM Age: 53 years old Clinical indication: Cough and dyspnea; Prior surgery; Surgery date: 6+ months TECHNIQUE: Imaging protocol: Radiologic exam of the chest. Views: 1 view. COMPARISON: CT angio abd aorta runof [id number] 09/21/2020 8:31 AM FINDINGS: Lungs: There is diffuse increase in interstitial markings with infiltration of the right middle lobe and retrocardiac regions. Findings suggest apically predominant emphysematous change. Pleural spaces: There is blunting of the bilateral costophrenic angles. Heart/Mediastinum: Extensive postsurgical changes of the mediastinum. Bones/joints: Unremarkable. Other findings: There is flattening of the bilateral diaphragms. XR/XR chest 1V portable [id number] IMPRESSION: 1. Right middle lobe and retrocardiac opacification with flattening of the diaphragms and blunting of the bilateral costophrenic angles suggesting small pleural effusions. Nonspecific may represent atelectasis, aspiration, infection. 2. Findings suggest interstitial lung disease. Correlate with patient history.
[2023-12-03] MEDS: ALPRAZolam 0.5 mg Tablet PO ×2 (03:46→20:19)
[2023-12-03] MEDS: ipratropium-albuterol 3 mL Neb INHALATION ×4 (03:53→20:21)
[2023-12-03 04:33] LABS: Basophils % 0.3 %; Eosinophils % 0.1 %; Hematocrit 32.5 % (36-47); Lymphocytes # 2.9 10^3/uL (0.8-4.8); Lymphocytes % 30.6 %; Mean Corpuscular HGB Conc 31.1 g/dL (30-55); Mean Corpuscular Hemoglobin 27.5 pg (27-33); Mean Corpuscular Volume 88.6 fl (85-98); Mean Platelet Volume 10.6 fL (7.4-10.4); Monocytes # 0.5 10^3/uL (0.2-0.9); Monocytes % 5.8 %; Neutrophils # 5.85 10^3/uL (1.8-7.7); Neutrophils % 62.9 %; Nucleated Red Blood Cells % 0 %; Platelet Count 466 10^3/cmm (157-399); Red Blood Count 3.67 10^6/uL (3.85-5.65); Red Cell Distribution Width 15.6 % (12.1-15.1); White Blood Count 9.31 10^3/uL (3.29-11.43)
[2023-12-03 04:54] LABS: Blood Urea Nitrogen 39 mg/dL (6-20); Calcium 8.1 mg/dL (8.5-10.5); Carbon Dioxide 22 mmol/L (22-29); Chloride 96 mmol/L (98-107); Creatinine Clr Calc Pharmacy 36.0419; Glomerular Filtration Rate 29.7 mL/min (90-130); Glucose 179 mg/dL (65-115); Magnesium 2.2 mg/dL (1.7-2.3); Osmolality Calculated 282 mOsm/kg (285-295); Sodium 129 mmol/L (136-145)
[2023-12-03 05:01] LABS: Anion Gap 16.6 (5-19); Potassium 5.6 mmol/L (3.5-5.1)
[2023-12-03] MEDS: regadenoson 0.4 Mg/5 ml Syringe 0.400000000000000022 MG IVP (07:33)
--- NOTE | 2023-12-03 09:37 | PM.PN ---
Subjective Subjective: Jacquelin reports she is doing okay. Not short of breath and not having any chest discomfort. Did have some shortness of breath last night, received a Xanax and was better. Chest x-ray did not show any concerning changes. Cardiology has seen the patient and she is underwent a nuclear stress test today, results are pending. Medications: Reviewed: Yes Vitals/I&O/Wt Last Vital Signs Temp 97.9 F 12/03/23 03:49 Pulse 96 12/03/23 07:54 Resp 15 12/03/23 06:00 BP 125/89 12/03/23 09:00 Pulse Ox 95 12/03/23 09:00 O2 Del Method Room Air 12/03/23 03:59 12/02/23 12/03/23 12/03/23 22:59 06:59 14:59 Intake Total 360 / 1140 620 / 1760 240 / 240 Output Total 500 / 1400 0 / 1400 Balance -140 / -260 620 / 360 240 / 240 Weight last 48 hrs Weight 58.513 kg Weight 58.513 kg Physical Exam Narrative: General exam seems comfortable Neck is supple, no lymphadenopathy or thyromegaly Cardiovascular regular rate and rhythm, no murmur, borderline tachycardic. Blood pressure now 130/80 Lungs diminished breath sounds bilaterally, crackles noted in left lower lobe. Abdomen is soft with positive bowel sounds. 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 Lower extremity edema improved Data 12/03/23 04:22 12/03/23 04:22 Other Labs: Some hemolysis noted Micro: Microbiology 12/01/23 09:55 Gram Stain - Final Sputum - Expectorated Sputum Sputum Culture - Preliminary A&P Assessment and plan (1) Congestive heart failure: Patient presents with acute congestive heart failure, likely systolic Echocardiogram completed 12/02/23 EF noted to 25%. Previous echo EF around 40% done at [facility] Currently holding Lasix She was markedly hypertensive at outside institution, likely secondary to her heart failure. Blood pressure today fairly normal Carvedilol has been changed to metoprolol per cardiology Continue to hold ELMER inhibitor,due to worsening kidney function. Qualifiers: Heart failure type: systolic Heart failure chronicity: acute on chronic Qualified Code(s): I50.23 - Acute on chronic systolic (congestive) heart failure (2) Pneumonia: Patient presents with pneumonia, has significant sputum production. She has consolidation on chest x-ray 12/01/23. CBC tomorrow Sputum culture mixed bruce on prelim Continue Rocephin, Zithromax. Blood cultures low yield currently. Will reconsider if fever develops. (3) COPD with acute exacerbation: Patient has COPD exacerbation manifested by wheezing. She is a long-term smoker. Continue Prednisone 40 mg daily Continue DuoNeb every 4 hours Continue Budesonide twice daily (4) Acute kidney injury: Likely cardiorenal. Cannot completely exclude chronic kidney disease Avoid anti-inflammatories Monitor renal function closely with repeat testing tomorrow (5) Hyperkalemia: Potassium elevated this morning, but some hemolysis noted Repeat potassium Continue to hold ARB currently (6) PAD (peripheral artery disease): Patient with known severe peripheral vascular disease to left lower extremity Monitor for severe skin breakdown Continue aspirin (7) Diabetes: Continue long-acting insulin, but reduced dosing secondary to renal dysfunction. Prednisone may also increase blood glucose. Continue to follow closely. Qualifiers: Diabetes mellitus type: type 2 Diabetes mellitus halfway insulin use: without halfway use Diabetes mellitus complication status: with circulatory complication Diabetes mellitus complication detail: with other circulatory complications Qualified Code(s): E11.59 - Type 2 diabetes mellitus with other circulatory complications Plan Tobacco dependency. Encourage abstaining. She refuses nicotine patch Multiple other medical problems as outlined in past medical history Allow natural . Extensive discussion with the patient. She exhibits understanding. She still wants to be aggressively treated, just not receive CPR, intubation, etc. Lovenox for DVT prophylaxis Attestations Medical Necessity Statement*: Needs continued hospital stay for IV antibiotics related to pneumonia Diagnoses Acute on chronic systolic congestive heart failure I50.23 Heart failure type: systolic Heart failure chronicity: acute on chronic Pneumonia J18.9 COPD with acute exacerbation J44.1 Acute kidney injury N17.9 Hyperkalemia E87.5 PAD (peripheral artery disease) I73.9 Type 2 diabetes mellitus with other circulatory complication, without long-term current use of insulin E11.59 Diabetes mellitus type: type 2 Diabetes mellitus adjunct faculty for medical terminology insulin use: without adjunct faculty for medical terminology use Diabetes mellitus complication status: with circulatory complication Diabetes mellitus complication detail: with other circulatory complications Time Spent (min) 25
[2023-12-03] MEDS: enoxaparin 40 mg/0.4 mL Syringe SUBCUT (10:58)
[2023-12-03] MEDS: predniSONE 20 mg Tablet 40 MG PO (10:59)
[2023-12-03] MEDS: metoprolol tartrate 25 mg Tablet 12.5 MG PO ×2 (10:59→20:18)
[2023-12-03] MEDS: aspirin 81 mg EC Tablet PO (10:59)
[2023-12-03] MEDS: atorvastatin 40 mg Tablet PO (11:00)
[2023-12-03] MEDS: fenofibrate 145 mg Tablet PO (11:00)
[2023-12-03] MEDS: insulin glargine 100 units/1 mL 15 UNIT SUBCUT (11:00)
[2023-12-03] MEDS: azithromycin 500 MG in sodium chloride 0.9% 250 ML 200 MG IV (11:01)
[2023-12-03] MEDS: cefTRIAXone 1,000 MG in sodium chloride 0.9% (plus) 50 ML 100 MG IV (11:01)
[2023-12-03 17:13] LABS: Glucose Point of Care 353 mg/dL (70-110)
[2023-12-03] MEDS: insulin lispro 100 unit/1 mL SUBCUT ×2 (17:46→20:19)
--- NOTE | 2023-12-03 18:26 | P.PN_ITS ---
Subjective 2 Subjective: The patient is feeling okay. No chest pain or shortness of breath. She had a Myocardial perfusion imaging today. She was found to have areas of fixed defects with some small areas of reversible defect in the inferolateral and apical septal regions. Medications: Medication Review Details: Current Medications Acetaminophen (Acetaminophen 325 Mg Tablet) 650 mg PO Q6H PRN PRN Reason: Mild/Mod Pain Or Temp >/= 101 Last Admin: 12/01/23 17:27 Dose: 650 mg Albuterol/Ipratropium (Ipratropium-Albuterol 3 Ml Neb) 3 ml INHALATION Q4H.RESPIRATORY CARMEN Last Admin: 12/03/23 15:27 Dose: 3 ml Aminophylline (Aminophylline 25 Mg/Ml Sdv 10 Ml) 25 mg IVP Q2M PRN PRN Reason: see dose instructions Stop: 12/04/23 06:23 Aspirin (Aspirin 81 Mg Ec Tablet) 81 mg PO DAILY CARMEN Last Admin: 12/03/23 10:59 Dose: 81 mg Atorvastatin Calcium (Atorvastatin 40 Mg Tablet) 40 mg PO DAILY CARMEN Last Admin: 12/03/23 11:00 Dose: 40 mg Benzonatate (Benzonatate 100 Mg Capsule) 100 mg PO TID PRN PRN Reason: COUGH Last Admin: 12/02/23 09:02 Dose: 100 mg Budesonide (Budesonide 0.5 Mg/2 Ml Neb) 0.5 mg INHALATION BID.RESPIRATORY CARMEN Last Admin: 12/03/23 07:45 Dose: Not Given Enoxaparin Sodium (Enoxaparin 40 Mg/0.4 Ml Syringe) 40 mg SUBCUT Q24H CARMEN Last Admin: 12/03/23 10:58 Dose: 40 mg Fenofibrate (Fenofibrate 145 Mg Tablet) 145 mg PO DAILY CARMEN Last Admin: 12/03/23 11:00 Dose: 145 mg Ceftriaxone Sodium 1,000 mg/ (Sodium Chloride) 50 mls @ 100 mls/hr IV Q24H CARMEN; Protocol Last Infusion: 12/03/23 12:29 Dose: Infused Azithromycin 500 mg/ Sodium (Chloride) 250 mls @ 250 mls/hr IV Q24H CARMEN; Protocol Last Infusion: 12/03/23 12:29 Dose: Infused Dextrose (D5w) 500 mls @ 0 mls/hr IV ONCE PRN; Protocol PRN Reason: Adult Acute Hypoglycemia Prot Dextrose (D10w) 125 mls @ 750 mls/hr IV PRN PRN; Protocol PRN Reason: Adult Acute Hypoglycemia Nursing Protocol Dextrose (D10w) 250 mls @ 1,000 mls/hr IV PRN PRN; Protocol PRN Reason: Adult Acute Hypoglycemia Nursing Protocol Insulin Glargine (Insulin Glargine 100 Units/1 Ml) 15 unit SUBCUT DAILY [facility] Last Admin: 12/03/23 11:00 Dose: 15 unit Insulin Human Lispro (Insulin Lispro 100 Unit/1 Ml) 0 unit SUBCUT WM&BEDTIME [facility]; Protocol Last Admin: 12/03/23 17:46 Dose: 12 unit Metoprolol Tartrate (Metoprolol Tartrate 25 Mg Tablet) 12.5 mg PO BID@0900,2100 [facility] Last Admin: 12/03/23 10:59 Dose: 12.5 mg Nitroglycerin (Nitroglycerin 0.4 Mg Sublingual Tablet) 0.4 mg SUBLINGUAL Q5M PRN PRN Reason: CHEST PAIN Stop: 12/04/23 06:23 Ondansetron HCl (Ondansetron 2 Mg/Ml Sdv 2 Ml) 4 mg IVP Q6H PRN PRN Reason: vomiting, or N/V if npo Ondansetron HCl (Ondansetron 2 Mg/Ml Sdv 2 Ml) 4 mg IVP Q2M PRN PRN Reason: NAUSEA Prednisone (Prednisone 20 Mg Tablet) 40 mg PO DAILY [facility] Last Admin: 12/03/23 10:59 Dose: 40 mg Vitals/I&O/Wt Last Vital Signs Temp 97.9 F 12/03/23 03:49 Pulse 91 12/03/23 15:31 Resp 28 H 12/03/23 15:31 BP 88/65 12/03/23 15:00 Pulse Ox 94 12/03/23 15:31 O2 Del Method Room Air 12/03/23 15:31 12/03/23 12/03/23 12/03/23 06:59 14:59 22:59 Intake Total 620 / 1760 780 / 780 240 / 1020 Output Total 0 / 1400 0 / 0 Balance 620 / 360 780 / 780 240 / 1020 Weight last 48 hrs Weight 129 lb Weight 129 lb Physical Exam 2 Narrative: GENERAL: The patient is alert and oriented times three. Not in any acute distress. HEENT: No significant pallor, icterus or lymphadenopathy.Oral cavity: There are no mucous membrane lesions. NECK: Trachea appears to be central. No masses noted. No JVD or thyromegaly appreciated. RESPIRATORY: Chest is symmetrical. No intercostals muscle retraction or any accessory muscle activation. There is no chest wall tenderness. Breath sounds are heard bilaterally. No rales or rhonchi heard. No evidence of any consolidation. BREASTS: Deferred. HEART: The heart sounds are normal. No S3 or S4. No significant murmurs. No pericardial rub ABDOMEN: No vessel pulsations or distention. No tenderness. No organomegaly appreciated. Bowel sounds are normally heard. : Deferred. RECTAL: Deferred. LYMPHATIC: No lymphadenopathy noted in the neck. EXTREMITIES: No edema or cyanosis. No clubbing. MUSCULOSKELETAL: No acute joint deformities or swelling SKIN: There are no significant rashes or ecchymosis NEUROPSYCHIATRIC: The patient is alert and oriented x3. Appears to be in a good mood. No tremors or rigidity noted. Data 12/04/23 04:23 12/04/23 04:23 Other Labs: Laboratory Last Values WBC 9.31 10^3/uL (3.29-11.43) 12/03/23 04:22 RBC 3.67 10^6/uL (3.85-5.65) L 12/03/23 04:22 Hgb 10.10 g/dL (11.27-16.99) L 12/03/23 04:22 Hct 32.5 % (36-47) L 12/03/23 04:22 MCV 88.6 fl (85-98) 12/03/23 04:22 MCH 27.5 pg (27-33) 12/03/23 04:22 MCHC 31.1 g/dL (30-55) 12/03/23 04:22 RDW 15.6 % (12.1-15.1) H 12/03/23 04:22 Plt Count 466 10^3/cmm (157-399) H 12/03/23 04:22 MPV 10.6 fL (7.4-10.4) H 12/03/23 04:22 Neut % (Auto) 62.9 % 12/03/23 04:22 Lymph % (Auto) 30.6 % 12/03/23 04:22 Camp % (Auto) 5.8 % 12/03/23 04:22 Eos % (Auto) 0.1 % 12/03/23 04:22 Baso % (Auto) 0.3 % 12/03/23 04:22 Neut # (Auto) 5.85 10^3/uL (1.8-7.7) 12/03/23 04:22 Lymph # (Auto) 2.9 10^3/uL (0.8-4.8) 12/03/23 04:22 Camp # (Auto) 0.5 10^3/uL (0.2-0.9) 12/03/23 04:22 Eos # (Auto) 0.0 10^3/uL (0.0-0.8) 12/03/23 04:22 Baso # (Auto) 0.0 10^3/uL (0.0-0.1) 12/03/23 04:22 Nucleated RBC % (auto) 0 % 12/03/23 04:22 Nucleated RBCs # 0.0 /100WBC 12/03/23 04:22 Sodium 129 mmol/L (136-145) L 12/03/23 04:22 Potassium 5.0 mmol/L (3.5-5.1) 12/03/23 09:06 Chloride 96 mmol/L (98-107) L 12/03/23 04:22 Carbon Dioxide 22 mmol/L (22-29) 12/03/23 04:22 Anion Gap 16.6 (5-19) 12/03/23 04:22 BUN 39 mg/dL (6-20) H 12/03/23 04:22 Creatinine 1.8 mg/dL (0.5-0.9) H 12/03/23 04:22 GFR Calculation 29.7 mL/min (90-130) L 12/03/23 04:22 Glucose 179 mg/dL (65-115) H 12/03/23 04:22 POC Glucose 353 mg/dL (70-110) H 12/03/23 17:11 Calculated Osmolality 282 mOsm/kg (285-295) L 12/03/23 04:22 Calcium 8.1 mg/dL (8.5-10.5) L 12/03/23 04:22 Magnesium 2.2 mg/dL (1.7-2.3) 12/03/23 04:22 Total Bilirubin 0.2 mg/dL (0.15-1.2) 12/02/23 04:11 AST 17 U/L (0-32) 12/02/23 04:11 ALT 8 U/L (0-33) 12/02/23 04:11 Alkaline Phosphatase 95 U/L (35-105) 12/02/23 04:11 Total Protein 5.8 g/dL (6.6-8.7) L 12/02/23 04:11 Albumin 2.6 g/dL (3.5-5.2) L 12/02/23 04:11 Globulin 3.2 g/dL (1.3-4.6) 12/02/23 04:11 TSH 1.39 uIU/mL (0.27-4.20) 12/02/23 04:11 Urine Color Yellow (Yellow) 12/02/23 16:40 Urine Appearance Clear (CLEAR) 12/02/23 16:40 Urine pH 5 (5-7) 12/02/23 16:40 Ur Specific [place] 1.015 (1.005-1.030) 12/02/23 16:40 Urine Protein 3+ (Negative) H 12/02/23 16:40 Urine Glucose (UA) 1+ (Normal) H 12/02/23 16:40 Urine Ketones Negative (Negative) 12/02/23 16:40 Urine Blood Neg (Negative) 12/02/23 16:40 Urine Nitrate Negative (Negative) 12/02/23 16:40 Urine Bilirubin Neg (Negative) 12/02/23 16:40 Urine Urobilinogen Norm mg/dL (Negative) 12/02/23 16:40 Ur Leukocyte Esterase Negative (Negative) 12/02/23 16:40 Urine RBC 0-4 /hpf (0-2) H 12/02/23 16:40 Urine WBC 0-4 /hpf (0-5) H 12/02/23 16:40 Ur Squamous Epith Cells 5-10 /hpf (0-5) H 12/02/23 16:40 Amorphous Sediment Trace /hpf 12/02/23 16:40 Urine Bacteria 1+ /hpf (NONE) H 12/02/23 16:40 Fine Granular Casts 0-4 /lpf H 12/02/23 16:40 Urine Mucus 1+ /hpf 12/02/23 16:40 Urine Yeast 1+ /hpf H 12/02/23 16:40 Micro: Microbiology 12/01/23 09:55 Gram Stain - Final Sputum - Expectorated Sputum Sputum Culture - Preliminary Other data: Echocardiogram on 12/01/2023 LV systolic function is severely reduced with EF of 25 to 30%. Left atrial dilation. Mitral valve annuloplasty noted. Mild to moderate mitral regurgitation mild to moderate mitral stenosis. Mild aortic regurgitation Mild tricuspid regurgitation Mild pulmonic regurgitation No comparison studies are available A&P Assessment and plan (1) Congestive heart failure: The heart failure is fairly compensated. Patient may be treated with the Lasix on a as needed basis. Because of the low blood pressure and the abnormal kidney function, we are not able to start many of the heart failure medications. We may try these medications based on her clinical progress. Qualifiers: Heart failure chronicity: acute on chronic Heart failure type: systolic Qualified Code(s): I50.23 - Acute on chronic systolic (congestive) heart failure (2) PAD (peripheral artery disease): Patient had the CTA and the findings are as mentioned above. (3) Acute kidney injury: The creatinine level is slowly increasing. (4) Ischemic cardiomyopathy: In view of the severe LV systolic dysfunction, she may benefit from prophylactic ICD. This was discussed with the patient in detail. Patient is willing to consider this. For the time being, it would be appropriate to consider a LifeVest, while we are trying to optimize the medical treatment. Patient is agreeable for this. (5) Diabetic peripheral neuropathy associated with type 2 diabetes mellitus: Management as per the primary care (6) Dyslipidemia: Continue on the current treatment (7) COPD with acute exacerbation: Management as per the primary Plan The other problems are Anemia Generalized emaciation Attestations 2 Medical Necessity Statement*: Deferred to the primary Coding Level of Care Code 77185 Diagnoses Acute on chronic systolic congestive heart failure I50.23 Heart failure chronicity: acute on chronic Heart failure type: systolic PAD (peripheral artery disease) I73.9 Acute kidney injury N17.9 Ischemic cardiomyopathy I25.5 Diabetic peripheral neuropathy associated with type 2 diabetes mellitus E11.42 Dyslipidemia E78.5 COPD with acute exacerbation J44.1
--- NOTE | 2023-12-03 18:44 | NMCV_ITS ---
NM archana perf SPECT r/s* [id number] Jacquelin Fry Age: 53 Gender: F : 1970 Exam Date: 12/03/2023 18:44 Ordering Phys: Luli Riley MD ([email or web address]) Technologist: CARLY Solitario Exam Location: [facility] Indications: CHEST PAIN STRESS TEST [facility] IMAGE PROTOCOL Rest/Stress 1 Lexiscan Day Radiopharmaceutical Dose (mCi) Administration Site Administered by Rest: Tc-99m 10.6 IV CARLY Ross Sestamibi Stress:Tc-99m 32.7 IV CARLY Ross Sestamibi Rest: 03-Dec-2023 60 Discovery 630 Stress: 03-Dec-2023 30 Discovery 630 0.4mg Lexiscan. Supine position only as patient was unable to lay prone. SPECT RESULTS Technical Quality: Excellent Raw Data Analysis: Normal Image Corrections: No attenuation or motion correction applied Summed Stress Score: 16 Summed Rest Score: 15 Summed Difference Score: 1 PERFUSION FINDINGS Moderate to large area of moderately decreased tracer uptake involving the inferior, inferolateral, mid anteroseptal, apical septal and LV apex. There were small areas of reversibility in the inferolateral and apical septal regions FUNCTIONAL RESULTS (calculated via Gated SPECT) Stress Image LV EF (%): 18 Stress EDV (mL):193 TID: 1 Stress ESV (mL):158 FUNCTIONAL FINDINGS: Segmental wall motion analysis revealed severe diffuse hypokinesis of the left ventricle IMPRESSIONS 1. Myocardial perfusion imaging revealing moderate to large area of moderately decreased persistent tracer uptake, involving the inferior, inferolateral, mid anteroseptal and apical regions with some small areas of reversibility suggesting extensive myocardial scarring in the distribution of the right coronary artery and left circumflex artery but there is possible small areas of maida-infarction ischemia mostly in the distribution of the left circumflex artery and left anterior descending artery. 2. Markedly diminished LV ejection fraction of 18% 3. Segmental wall motion analysis revealed severe diffuse hypokinesia of the left ventricle. 4. Moderately dilated LV cavity, with an end-systolic volume of 158 ml. No similar previous studies are available for comparison Dr Luli Riley MD [facility] (Electronically Signed) Final Date: 03 December 2023 13:11 S
--- NOTE | 2023-12-03 19:24 | PC.NURSE ---
Patient requesting same medication given early this morning for air hunger and sleep. Informed Dr Roland and received order for onetime dose of Xanax 0.5mg PO.
[2023-12-03] MEDS: budesonide 0.5 mg/2 mL Neb INHALATION (20:21)
[2023-12-03 20:22] LABS: Glucose Point of Care 371 mg/dL (70-110)
[2023-12-04] VITALS (19 sets, daily range): BP systolic 94–163; BP diastolic 72–99; PULSE 83–113; RESP 17–30; TEMP 36.4–36.6; O2SAT 93–99
[2023-12-04] MEDS: ipratropium-albuterol 3 mL Neb INHALATION ×6 (01:30→19:59)
[2023-12-04 04:29] LABS: Basophils % 0.1 %; Hematocrit 32.8 % (36-47); Lymphocytes # 1.3 10^3/uL (0.8-4.8); Lymphocytes % 16.3 %; Mean Corpuscular HGB Conc 31.1 g/dL (30-55); Mean Corpuscular Hemoglobin 27.6 pg (27-33); Mean Corpuscular Volume 88.6 fl (85-98); Monocytes # 0.3 10^3/uL (0.2-0.9); Neutrophils % 79.1 %; Nucleated Red Blood Cells % 0 %; Platelet Count 467 10^3/cmm (157-399); Red Cell Distribution Width 15.4 % (12.1-15.1); White Blood Count 7.84 10^3/uL (3.29-11.43)
[2023-12-04 04:55] LABS: Anion Gap 16.6 (5-19); Blood Urea Nitrogen 43 mg/dL (6-20); Calcium 8.1 mg/dL (8.5-10.5); Carbon Dioxide 22 mmol/L (22-29); Chloride 98 mmol/L (98-107); Glomerular Filtration Rate 31.7 mL/min (90-130); Glucose 254 mg/dL (65-115); Osmolality Calculated 291 mOsm/kg (285-295); Potassium 5.6 mmol/L (3.5-5.1); Sodium 131 mmol/L (136-145)
[2023-12-04 06:38] LABS: Glucose Point of Care 289 mg/dL (70-110)
[2023-12-04] MEDS: budesonide 0.5 mg/2 mL Neb INHALATION ×2 (07:25→19:59)
[2023-12-04] MEDS: ALPRAZolam 0.5 mg Tablet PO ×2 (07:56→20:14)
[2023-12-04] MEDS: azithromycin 500 MG in sodium chloride 0.9% 250 ML 250 MG IV (07:57)
[2023-12-04] MEDS: cefTRIAXone 1,000 MG in sodium chloride 0.9% (plus) 50 ML 100 MG IV (07:57)
[2023-12-04] MEDS: insulin lispro 100 unit/1 mL SUBCUT ×2 (08:00→13:12)
[2023-12-04] MEDS: aspirin 81 mg EC Tablet PO (08:00)
[2023-12-04] MEDS: atorvastatin 40 mg Tablet PO (08:00)
[2023-12-04] MEDS: predniSONE 20 mg Tablet 40 MG PO (08:00)
[2023-12-04] MEDS: metoprolol tartrate 25 mg Tablet 12.5 MG PO ×2 (08:00→20:13)
[2023-12-04] MEDS: enoxaparin 40 mg/0.4 mL Syringe SUBCUT (08:12)
[2023-12-04] MEDS: insulin glargine 100 units/1 mL 15 UNIT SUBCUT (08:12)
[2023-12-04] MEDS: sodium polystyrene sulfonate 15 gm/60 mL Btl PO (08:15)
[2023-12-04] MEDS: fenofibrate 145 mg Tablet PO (08:16)
--- NOTE | 2023-12-04 09:31 | PC.CHAP ---
Pastoral Care Encounter/Spiritual Assessment Type of Contact [] Declined crib attendant visit [] Patient/Family/Request visit [] Outpatient visit [] Follow-up visit [] Physician referral [] Code/Alert [] Routine visit [] Staff referral [] Actively dying [] Patient sleeping [] Family support [] [] Out of room [] Palliative care [] [x] Receiving care in room [] Pre-surgical visit [] Trauma [] Long length of stay [] ICU visit [] Other: Relational/Emotional Strength [] Patient feels connected with others/family/visitors/staff [] Distress [] Loneliness/isolation [] Abandonment Spirituality of Patient [] Person of Inez [] Attends Jehov[employer] Witness of their [place] [] Believes in Prayer [] Reads Bible or Muslim materials [] There are Spiritual issues to be addressed Bottling Attendant Interventions [] Prayer [] Active listening [] Non-anxious presence [] Spiritual/emotional support [] Crisis/trauma care [] Spiritual counseling [] Bereavement support [] Provided bereavement packet [] Provided Bible/devotional materials [] Provided toy/stuffed animal, coloring book to patient or family member [] Provided Communion [] Anointing/[place] [] Salvation [] Completed spiritual assessment [] Other: Impact on Illness or Injury [] Angry [] Fearful [] Anxious [] Often cries [] Exhaustion [] Unable to work [] Unable to attend buddhist [] Unable to walk/stand [] Unable to read [] Unable to drive [] Unable to eat/drink [] Unable to sleep [] Unable to be with family [] Patient intubated [] Other: Summary Time spent with patient
--- NOTE | 2023-12-04 09:45 | PM.PN ---
Documented by User: Jessie Borrego, ALETHA STDFLIP 12/04/23 10:00 Subjective Subjective: Patient sitting up in bed this morning on room air. She appeared tearful and anxious stating, I feel like I can't catch my breath. I am afraid if I fall asleep I will stop breathing. Mrs. Fry reported she had trouble sleeping last night due to anxiety and trouble breathing and received a Xanax and this helped her a little. She denies pain at this time. Medications: Reviewed: Yes Vitals/I&O/Wt Last Vital Signs Temp 97.8 F 12/04/23 08:00 Pulse 101 H 12/04/23 08:00 Resp 29 H 12/04/23 08:00 BP 147/99 12/04/23 08:00 Pulse Ox 97 12/04/23 08:00 O2 Del Method Room Air 12/04/23 08:00 12/03/23 12/04/23 12/04/23 22:59 06:59 14:59 Intake Total 600 / 1380 17.5 / 17.5 Output Total 600 / 600 Balance 600 / 1380 -600 / 780 17.5 / 17.5 Weight last 48 hrs Weight 129 lb Physical Exam Narrative: General exam tearful this morning, anxious. Neck is supple, no lymphadenopathy or thyromegaly Cardiovascular regular rate and rhythm, no murmur, borderline tachycardic. Lungs diminished breath sounds bilaterally, crackles noted in left lower lobe. Abdomen is soft with positive bowel sounds. 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 Lower extremity edema improved. Data 12/04/23 04:23 12/04/23 04:23 Micro: Microbiology 12/01/23 09:55 Gram Stain - Final Sputum - Expectorated Sputum Sputum Culture - Preliminary A&P Assessment and plan (1) Congestive heart failure: Patient presents with acute congestive heart failure, likely systolic Echocardiogram completed 12/02/23 EF noted to 25%. Previous echo EF around 40% done at [facility] one time order this am She was markedly hypertensive at outside institution, likely secondary to her heart failure. Blood pressure today fairly normal Continue metoprolol per cardiology Continue to hold ELMER inhibitor,due to worsening kidney function. Qualifiers: Heart failure chronicity: acute on chronic Heart failure type: systolic Qualified Code(s): I50.23 - Acute on chronic systolic (congestive) heart failure (2) Pneumonia: Patient presents with pneumonia, has significant sputum production. She has consolidation on chest x-ray 12/01/23. CBC tomorrow Sputum culture mixed bruce on prelim Continue Rocephin, Zithromax. Blood cultures low yield currently. Will reconsider if fever develops. (3) COPD with acute exacerbation: Patient has COPD exacerbation manifested by wheezing. She is a long-term smoker. Continue Prednisone 40 mg daily Continue DuoNeb every 4 hours Continue Budesonide twice daily (4) Acute kidney injury: Likely cardiorenal. Cannot completely exclude chronic kidney disease Avoid anti-inflammatories Monitor renal function closely with repeat testing tomorrow (5) Hyperkalemia: Potassium elevated this morning, Kayexalate ordered Repeat potassium Continue to hold ARB currently (6) PAD (peripheral artery disease): Patient with known severe peripheral vascular disease to left lower extremity Monitor for severe skin breakdown Continue aspirin (7) Diabetes: Continue long-acting insulin, but reduced dosing secondary to renal dysfunction. Prednisone may also increase blood glucose. Continue to follow closely. Qualifiers: Diabetes mellitus complication detail: with other circulatory complications Diabetes mellitus complication status: with circulatory complication Diabetes mellitus half-way insulin use: without intermodal dispatcher use Diabetes mellitus type: type 2 Qualified Code(s): E11.59 - Type 2 diabetes mellitus with other circulatory complications Plan Tobacco dependency. Encourage abstaining. She refuses nicotine patch Multiple other medical problems as outlined in past medical history Allow natural . Extensive discussion with the patient. She exhibits understanding. She still wants to be aggressively treated, just not receive CPR, intubation, etc. Lovenox for DVT prophylaxis Coding Level of Care Code 57063 Diagnoses Acute on chronic systolic congestive heart failure I50.23 Heart failure chronicity: acute on chronic Heart failure type: systolic Pneumonia J18.9 COPD with acute exacerbation J44.1 Acute kidney injury N17.9 Hyperkalemia E87.5 PAD (peripheral artery disease) I73.9 Type 2 diabetes mellitus with other circulatory complication, without long-term current use of insulin E11.59 Diabetes mellitus complication detail: with other circulatory complications Diabetes mellitus complication status: with circulatory complication Diabetes mellitus half-way insulin use: without intermodal dispatcher use Diabetes mellitus type: type 2 Time Spent (min) 24 Documented by User: Matthieu Agudelo MD 12/04/23 10:08 Subjective Subjective: Patient sitting up in bed this morning on room air. She appeared tearful and anxious stating, I feel like I can't catch my breath. I am afraid if I fall asleep I will stop breathing. Mrs. Fry reported she had trouble sleeping last night due to anxiety and trouble breathing and received a Xanax and this helped her a little. She denies pain at this time. She reports the depression and anxiety at home. Data 12/04/23 04:23 12/04/23 04:23 A&P Assessment and plan (1) Congestive heart failure: Patient presents with acute congestive heart failure, likely systolic Echocardiogram completed 12/02/23 EF noted to 25%. Previous echo EF around 40% done at [facility] IV one time order this am She was markedly hypertensive at outside institution, likely secondary to her heart failure. Blood pressure today fairly normal Continue metoprolol per cardiology Continue to hold ELMER inhibitor,due to worsening kidney function. BMP tomorrow, monitor at that time whether p.o. Lasix can be reinitiated Cardiology has been consulted. From my understanding LifeVest will be recommended, medication adjustment. Nuclear stress test showed some small areas of reversibility, and some significant areas of reduced nuclear isotope uptake. Cardiology at this point recommends medical management. Qualifiers: Heart failure chronicity: acute on chronic Heart failure type: systolic Qualified Code(s): I50.23 - Acute on chronic systolic (congestive) heart failure (2) Pneumonia: Patient presents with pneumonia, has significant sputum production. She has consolidation on chest x-ray 12/01/23. Sputum culture mixed bruce on prelim Continue Rocephin, Zithromax. Blood cultures low yield currently. Will reconsider if fever develops. (3) COPD with acute exacerbation: (4) Acute kidney injury: Likely cardiorenal. Cannot completely exclude chronic kidney disease Avoid anti-inflammatories Renal function slightly improved, repeat tomorrow (5) Hyperkalemia: Potassium elevated this morning, Kayexalate ordered Repeat potassium this afternoon Continue to hold ARB currently (6) PAD (peripheral artery disease): (7) Diabetes: Qualifiers: Diabetes mellitus complication detail: with other circulatory complications Diabetes mellitus complication status: with circulatory complication Diabetes mellitus intermodal dispatcher insulin use: without intermodal dispatcher use Diabetes mellitus type: type 2 Qualified Code(s): E11.59 - Type 2 diabetes mellitus with other circulatory complications Plan Tobacco dependency. Encourage abstaining. She refuses nicotine patch Depression/anxiety. Start Zoloft 25 mg p.o. daily. Risk and benefits discussed. Multiple other medical problems as outlined in past medical history Allow natural . Extensive discussion with the patient. She exhibits understanding. She still wants to be aggressively treated, just not receive CPR, intubation, etc. Lovenox for DVT prophylaxis Attestations Medical Necessity Statement*: Needs continued hospital stay, for close follow-up with hyperkalemia, renal function, CHF with resumption of diuresis. Diagnoses Acute on chronic systolic congestive heart failure I50.23 Heart failure chronicity: acute on chronic Heart failure type: systolic Pneumonia J18.9 COPD with acute exacerbation J44.1 Acute kidney injury N17.9 Hyperkalemia E87.5 PAD (peripheral artery disease) I73.9 Type 2 diabetes mellitus with other circulatory complication, without long-term current use of insulin E11.59 Diabetes mellitus complication detail: with other circulatory complications Diabetes mellitus complication status: with circulatory complication Diabetes mellitus half-way insulin use: without intermodal dispatcher use Diabetes mellitus type: type 2 Time Spent (min) 24
[2023-12-04] MEDS: FUROsemide 10 mg/mL SDV 4mL 40 MG IVP (09:54)
--- NOTE | 2023-12-04 09:55 | PC.NURSE ---
0759 am pt IV started leaking and not viable to use. Started a new IV on left forearm #22.
[2023-12-04] MEDS: sertraline 50 mg Tablet 25 MG PO (10:21)
[2023-12-04 10:56] LABS: Glucose Point of Care 201 mg/dL (70-110)
--- NOTE | 2023-12-04 11:16 | PC.NURSE ---
pt is talking on the phone with her grandchild asked how her breathing and she said, a little better. Notified Dr Riley of her current BP-94/72, map-79 via telephone.
--- NOTE | 2023-12-04 12:08 | PM.PN ---
Subjective Subjective: Patient had an episode of shortness of breath this morning. She responded to IV Lasix. She also was found to be anxious. Her blood pressure was found to be elevated during the spell .but after getting the Lasix, and the Xanax, the blood pressure came down to the baseline No chest pain or chest tightness. Medications: Medication Review Details: Current Medications Acetaminophen (Acetaminophen 325 Mg Tablet) 650 mg PO Q6H PRN PRN Reason: Mild/Mod Pain Or Temp >/= 101 Last Admin: 12/01/23 17:27 Dose: 650 mg Albuterol/Ipratropium (Ipratropium-Albuterol 3 Ml Neb) 3 ml INHALATION Q4H.RESPIRATORY CARMEN Last Admin: 12/04/23 11:37 Dose: 3 ml Alprazolam (Alprazolam 0.5 Mg Tablet) 0.5 mg PO TID PRN PRN Reason: ANXIETY Aspirin (Aspirin 81 Mg Ec Tablet) 81 mg PO DAILY CARMEN Last Admin: 12/04/23 08:00 Dose: 81 mg Atorvastatin Calcium (Atorvastatin 40 Mg Tablet) 40 mg PO DAILY CARMEN Last Admin: 12/04/23 08:00 Dose: 40 mg Benzonatate (Benzonatate 100 Mg Capsule) 100 mg PO TID PRN PRN Reason: COUGH Last Admin: 12/02/23 09:02 Dose: 100 mg Budesonide (Budesonide 0.5 Mg/2 Ml Neb) 0.5 mg INHALATION BID.RESPIRATORY CARMEN Last Admin: 12/04/23 07:25 Dose: 0.5 mg Enoxaparin Sodium (Enoxaparin 40 Mg/0.4 Ml Syringe) 40 mg SUBCUT Q24H CARMEN Last Admin: 12/04/23 08:12 Dose: 40 mg Fenofibrate (Fenofibrate 145 Mg Tablet) 145 mg PO DAILY CARMEN Last Admin: 12/04/23 08:16 Dose: 145 mg Ceftriaxone Sodium 1,000 mg/ (Sodium Chloride) 50 mls @ 100 mls/hr IV Q24H CARMEN; Protocol Last Infusion: 12/04/23 10:23 Dose: Infused Azithromycin 500 mg/ Sodium (Chloride) 250 mls @ 250 mls/hr IV Q24H CARMEN; Protocol Last Infusion: 12/04/23 08:00 Dose: 0 mls/hr Dextrose (D5w) 500 mls @ 0 mls/hr IV ONCE PRN; Protocol PRN Reason: Adult Acute Hypoglycemia Prot Dextrose (D10w) 125 mls @ 750 mls/hr IV PRN PRN; Protocol PRN Reason: Adult Acute Hypoglycemia Nursing Protocol Dextrose (D10w) 250 mls @ 1,000 mls/hr IV PRN PRN; Protocol PRN Reason: Adult Acute Hypoglycemia Nursing Protocol Insulin Glargine (Insulin Glargine 100 Units/1 Ml) 15 unit SUBCUT DAILY [facility] Last Admin: 12/04/23 08:12 Dose: 15 unit Insulin Human Lispro (Insulin Lispro 100 Unit/1 Ml) 0 unit SUBCUT WM&BEDTIME [facility]; Protocol Last Admin: 12/04/23 08:00 Dose: 8 unit Metoprolol Tartrate (Metoprolol Tartrate 25 Mg Tablet) 12.5 mg PO BID@0900,2100 [facility] Last Admin: 12/04/23 08:00 Dose: 12.5 mg Ondansetron HCl (Ondansetron 2 Mg/Ml Sdv 2 Ml) 4 mg IVP Q6H PRN PRN Reason: vomiting, or N/V if npo Ondansetron HCl (Ondansetron 2 Mg/Ml Sdv 2 Ml) 4 mg IVP Q2M PRN PRN Reason: NAUSEA Prednisone (Prednisone 20 Mg Tablet) 40 mg PO DAILY [facility] Last Admin: 12/04/23 08:00 Dose: 40 mg Sertraline HCl (Sertraline 50 Mg Tablet) 25 mg PO DAILY [facility] Last Admin: 12/04/23 10:21 Dose: 25 mg Vitals/I&O/Wt Last Vital Signs Temp 97.9 F 12/04/23 11:55 Pulse 101 H 12/04/23 11:55 Resp 19 H 12/04/23 11:55 BP 94/72 12/04/23 11:55 Pulse Ox 98 12/04/23 11:55 O2 Del Method Room Air 12/04/23 11:55 12/03/23 12/04/23 12/04/23 22:59 06:59 14:59 Intake Total 600 / 1380 62.5 / 62.5 Output Total 600 / 600 590 / 590 Balance 600 / 1380 -600 / 780 -527.5 / -527.5 Weight last 48 hrs Weight 129 lb Physical Exam Narrative: GENERAL: The patient is alert and oriented times three. Not in any acute distress. HEENT: No significant pallor, icterus or lymphadenopathy.Oral cavity: There are no mucous membrane lesions. NECK: Trachea appears to be central. No masses noted. No JVD or thyromegaly appreciated. RESPIRATORY: Chest is symmetrical. No intercostals muscle retraction or any accessory muscle activation. There is no chest wall tenderness. Breath sounds are heard bilaterally. No rales or rhonchi heard. No evidence of any consolidation. The breath sounds are slightly diminished in the bases BREASTS: Deferred. HEART: The heart sounds are normal. No S3 or S4. No significant murmurs. No pericardial rub ABDOMEN: No vessel pulsations or distention. No tenderness. No organomegaly appreciated. Bowel sounds are normally heard. : Deferred. RECTAL: Deferred. LYMPHATIC: No lymphadenopathy noted in the neck. EXTREMITIES: No edema or cyanosis. No clubbing. MUSCULOSKELETAL: No acute joint deformities or swelling SKIN: There are no significant rashes or ecchymosis NEUROPSYCHIATRIC: The patient is alert and oriented x3. Appears to be in a good mood. No tremors or rigidity noted. Data 12/04/23 04:23 12/04/23 04:23 Other Labs: Laboratory Last Values WBC 7.84 10^3/uL (3.29-11.43) 12/04/23 04:23 RBC 3.70 10^6/uL (3.85-5.65) L 12/04/23 04:23 Hgb 10.20 g/dL (11.27-16.99) L 12/04/23 04:23 Hct 32.8 % (36-47) L 12/04/23 04:23 MCV 88.6 fl (85-98) 12/04/23 04:23 MCH 27.6 pg (27-33) 12/04/23 04:23 MCHC 31.1 g/dL (30-55) 12/04/23 04:23 RDW 15.4 % (12.1-15.1) H 12/04/23 04:23 Plt Count 467 10^3/cmm (157-399) H 12/04/23 04:23 MPV 10.0 fL (7.4-10.4) 12/04/23 04:23 Neut % (Auto) 79.1 % 12/04/23 04:23 Lymph % (Auto) 16.3 % 12/04/23 04:23 [place] % (Auto) 4.0 % 12/04/23 04:23 Eos % (Auto) 0.0 % 12/04/23 04:23 Baso % (Auto) 0.1 % 12/04/23 04:23 Neut # (Auto) 6.20 10^3/uL (1.8-7.7) 12/04/23 04:23 Lymph # (Auto) 1.3 10^3/uL (0.8-4.8) 12/04/23 04:23 [place] # (Auto) 0.3 10^3/uL (0.2-0.9) 12/04/23 04:23 Eos # (Auto) 0.0 10^3/uL (0.0-0.8) 12/04/23 04:23 Baso # (Auto) 0.0 10^3/uL (0.0-0.1) 12/04/23 04:23 Nucleated RBC % (auto) 0 % 12/04/23 04:23 Nucleated RBCs # 0.0 /100WBC 12/04/23 04:23 Sodium 131 mmol/L (136-145) L 12/04/23 04:23 Potassium 5.6 mmol/L (3.5-5.1) H 12/04/23 04:23 Chloride 98 mmol/L (98-107) 12/04/23 04:23 Carbon Dioxide 22 mmol/L (22-29) 12/04/23 04:23 Anion Gap 16.6 (5-19) 12/04/23 04:23 BUN 43 mg/dL (6-20) H 12/04/23 04:23 Creatinine 1.7 mg/dL (0.5-0.9) H 12/04/23 04:23 GFR Calculation 31.7 mL/min (90-130) L 12/04/23 04:23 Glucose 254 mg/dL (65-115) H 12/04/23 04:23 POC Glucose 201 mg/dL (70-110) H 12/04/23 10:53 Calculated Osmolality 291 mOsm/kg (285-295) 12/04/23 04:23 Calcium 8.1 mg/dL (8.5-10.5) L 12/04/23 04:23 Magnesium 2.2 mg/dL (1.7-2.3) 12/03/23 04:22 Total Bilirubin 0.2 mg/dL (0.15-1.2) 12/02/23 04:11 AST 17 U/L (0-32) 12/02/23 04:11 ALT 8 U/L (0-33) 12/02/23 04:11 Alkaline Phosphatase 95 U/L (35-105) 12/02/23 04:11 Total Protein 5.8 g/dL (6.6-8.7) L 12/02/23 04:11 Albumin 2.6 g/dL (3.5-5.2) L 12/02/23 04:11 Globulin 3.2 g/dL (1.3-4.6) 12/02/23 04:11 TSH 1.39 uIU/mL (0.27-4.20) 12/02/23 04:11 Urine Color Yellow (Yellow) 12/02/23 16:40 Urine Appearance Clear (CLEAR) 12/02/23 16:40 Urine pH 5 (5-7) 12/02/23 16:40 Ur Specific [place] 1.015 (1.005-1.030) 12/02/23 16:40 Urine Protein 3+ (Negative) H 12/02/23 16:40 Urine Glucose (UA) 1+ (Normal) H 12/02/23 16:40 Urine Ketones Negative (Negative) 12/02/23 16:40 Urine Blood Neg (Negative) 12/02/23 16:40 Urine Nitrate Negative (Negative) 12/02/23 16:40 Urine Bilirubin Neg (Negative) 12/02/23 16:40 Urine Urobilinogen Norm mg/dL (Negative) 12/02/23 16:40 Ur Leukocyte Esterase Negative (Negative) 12/02/23 16:40 Urine RBC 0-4 /hpf (0-2) H 12/02/23 16:40 Urine WBC 0-4 /hpf (0-5) H 12/02/23 16:40 Ur Squamous Epith Cells 5-10 /hpf (0-5) H 12/02/23 16:40 Amorphous Sediment Trace /hpf 12/02/23 16:40 Urine Bacteria 1+ /hpf (NONE) H 12/02/23 16:40 Fine Granular Casts 0-4 /lpf H 12/02/23 16:40 Urine Mucus 1+ /hpf 12/02/23 16:40 Urine Yeast 1+ /hpf H 12/02/23 16:40 Micro: Microbiology 12/01/23 09:55 Gram Stain - Final Sputum - Expectorated Sputum Sputum Culture - Preliminary A&P Assessment and plan (1) Congestive heart failure: Seems to have intermittent decompensation of the heart failure. Currently seems to be getting compensated with the Lasix. I may go ahead and do a troponin T to evaluate for any enzyme leak. Qualifiers: Heart failure type: systolic Heart failure chronicity: acute on chronic Qualified Code(s): I50.23 - Acute on chronic systolic (congestive) heart failure (2) PAD (peripheral artery disease): Patient had the CTA and the findings are as mentioned above. (3) Acute kidney injury: The BUN/creatinine levels are still remaining elevated (4) Ischemic cardiomyopathy: In view of the severe LV systolic dysfunction, she may benefit from prophylactic ICD. This was discussed with the patient in detail. Patient is willing to consider this. For the time being, it would be appropriate to consider a LifeVest, while we are trying to optimize the medical treatment. Patient is agreeable for this. I will go ahead and order the LifeVest today (5) Diabetic peripheral neuropathy associated with type 2 diabetes mellitus: Management as per the primary care (6) Dyslipidemia: Continue on the current treatment (7) COPD with acute exacerbation: Management as per the primary Plan The other problems are Mild Anemia Generalized emaciation If the patient gets recurrent decompensated heart failure, we may need to consider the cardiac catheterization. Because of the high BUN/creatinine we may hold off on this for the time Attestations Medical Necessity Statement*: Patient requires continued hospital stay for close monitoring and further management Coding Level of Care Code Acute Code for Chg Fwd Diagnoses Acute on chronic systolic congestive heart failure I50.23 Heart failure type: systolic Heart failure chronicity: acute on chronic PAD (peripheral artery disease) I73.9 Acute kidney injury N17.9 Ischemic cardiomyopathy I25.5 Diabetic peripheral neuropathy associated with type 2 diabetes mellitus E11.42 Dyslipidemia E78.5 COPD with acute exacerbation J44.1
[2023-12-04 12:43] LABS: Troponin T (5th) Once 128 ng/L (0-10)
[2023-12-04 12:54] LABS: Potassium 4.8 mmol/L (3.5-5.1)
--- NOTE | 2023-12-04 13:02 | PC.NURSE ---
Pt is adamant to get out of the room. Her dgtr and son at bedside and already put her on the wheelchair with her grand child on her lap. House sup told her she can only wander around the hallways. Pt then stated, I am not a prisoner here. Educated pt that if something happened to her away from her sight we can't be there to help her susan. Pt stated, I have not seen my family for days. And I want to get some coffee. Family at bedside and wheeling here. Tele monitor box applied to pt.
[2023-12-04 16:43] LABS: Troponin T (5th) Once 140 ng/L (0-10)
[2023-12-04 16:46] LABS: Glucose Point of Care 124 mg/dL (70-110)
[2023-12-04] MEDS: clopidogrel 300 mg Tablet PO (18:05)
[2023-12-04] MEDS: heparin 5,000 unit/mL INJ 1 mL IV (18:05)
[2023-12-04] MEDS: heparin drip 25,000 UNIT/500 ML PREMIX 17 UNIT IV (18:19)
--- NOTE | 2023-12-04 18:59 | PC.NURSE ---
cardiology orders 1730PM- Received telephone orders from Dr Riley to start pt on Heparin drip protocol and only give half a dose of initial heparin bolus, give 300 mg Plavix once PO and start 75 mg maintenance dose of Plavix tomorrow, keep patient NPO after midnight for cardiac reevaluation by Dr Adams tomorrow morning.
[2023-12-04 21:46] LABS: Platelet Count 554 10^3/cmm (157-399)
[2023-12-04 22:00] LABS: Glucose Point of Care 137 mg/dL (70-110)
[2023-12-04 22:10] LABS: Troponin 5 6HR Delta 3.7 ng/L (0-12)
[2023-12-04 22:18] LABS: Troponin 5 6HR 131.7 ng/L (0-10)
[2023-12-04 23:39] LABS: Partial Thromboplastin Time 84.1 SECONDS (23.9-36.7)
[2023-12-05] VITALS (14 sets, daily range): BP systolic 104–166; BP diastolic 70–102; PULSE 81–95; RESP 15–24; TEMP 36.2–36.7; O2SAT 93–100
[2023-12-05] MEDS: ALPRAZolam 0.5 mg Tablet PO ×4 (01:15→21:45)
[2023-12-05] MEDS: labetalol 5 mg/mL SDV 20mL 10 MG IVP (02:58)
[2023-12-05] MEDS: ipratropium-albuterol 3 mL Neb INHALATION ×4 (03:08→20:45)
[2023-12-05 06:14] LABS: Anion Gap 18.4 (5-19); Blood Urea Nitrogen 43 mg/dL (6-20); Calcium 9.3 mg/dL (8.5-10.5); Carbon Dioxide 26 mmol/L (22-29); Chloride 95 mmol/L (98-107); Creatinine Clr Calc Pharmacy 36.6774; Glomerular Filtration Rate 29.7 mL/min (90-130); Glucose 117 mg/dL (65-115); Magnesium 2.2 mg/dL (1.7-2.3); Osmolality Calculated 290 mOsm/kg (285-295); Potassium 5.4 mmol/L (3.5-5.1); Sodium 134 mmol/L (136-145)
[2023-12-05 06:15] LABS: Partial Thromboplastin Time 83.1 SECONDS (23.9-36.7)
[2023-12-05 07:34] LABS: Glucose Point of Care 113 mg/dL (70-110)
[2023-12-05] MEDS: budesonide 0.5 mg/2 mL Neb INHALATION ×2 (07:43→20:45)
[2023-12-05] MEDS: cefTRIAXone 1,000 MG in sodium chloride 0.9% (plus) 50 ML 100 MG IV (07:56)
[2023-12-05] MEDS: FUROsemide 40 mg Tablet PO (07:56)
--- NOTE | 2023-12-05 08:00 | PC.NURSE ---
offerred pt if she needs a laxative of stool softener she decline for now. she said, her bm is usually 4 or 5 days. educated pt that we don't want her to get constipated. she verbalizes understanding.
[2023-12-05] MEDS: azithromycin 500 MG in sodium chloride 0.9% 250 ML 250 MG IV (08:04)
--- NOTE | 2023-12-05 09:18 | P.PN_ITS ---
Subjective 2 Subjective: Patient denies chest pain. Had 1 episode of shortness of breath. Vitals/I&O/Wt Last Vital Signs Temp 97.7 F 12/05/23 06:58 Pulse 88 12/05/23 07:54 Resp 16 12/05/23 07:43 BP 154/96 12/05/23 06:58 Pulse Ox 97 12/05/23 07:43 O2 Del Method Room Air 12/05/23 07:43 O2 Flow Rate 2 12/05/23 00:00 12/04/23 12/05/23 12/05/23 22:59 06:59 14:59 Intake Total 640 / 1058.0 197.65 / 1255.65 Output Total 750 / 1340 250 / 1590 Balance -110 / -282.0 -52.35 / -334.35 Weight last 48 hrs Weight 135 lb Physical Exam 2 Narrative: GENERAL: Patient is alert, awake and oriented x3. [] NECK: No jugular vein distension. [] HEENT: No cyanosis. No icterus. No pallor. [] HEART: Regular S1 and S2. No murmur, rub or gallop. [] LUNGS: Diminished air entry CENTRAL NERVOUS SYSTEM: Grossly nonfocal. [] Urinary Catheter Management: Molina: Cath Placed During This Visit: yes Reason for Continuing Indwelling Catheter: Other Urinary Catheter Date of Insertion: 12/05/23 Urinary Catheter Time of Insertion: 02:37 Data 12/06/23 03:06 12/06/23 03:06 Micro: Microbiology 12/01/23 09:55 Gram Stain - Final Sputum - Expectorated Sputum Sputum Culture - Final Haemophilus influenzae A&P Assessment and plan (1) Congestive heart failure: Qualifiers: Heart failure type: systolic Heart failure chronicity: acute on chronic Qualified Code(s): I50.23 - Acute on chronic systolic (congestive) heart failure (2) PAD (peripheral artery disease): (3) Acute kidney injury: (4) Ischemic cardiomyopathy: (5) Diabetic peripheral neuropathy associated with type 2 diabetes mellitus: (6) Dyslipidemia: (7) COPD with acute exacerbation: Plan Patient is a stable hormone of volume standpoint. I had a discussion with her regarding all possible options. Here to see and wait to proceed with medical therapy given stress test findings, abnormal creatinine and no significant chest pain. Troponin elevation likely secondary to demand ischemia in setting of congestive heart failure and renal dysfunction. Can continue heparin for 48 hours. Close I&O's. She is awaiting LifeVest. Once LifeVest is received, she is stable to be discharged from starting cardiology standpoint. Thank you for involving us care of this patient. Please call with questions. Attestations 2 Medical Necessity Statement*: Care expected to cross 2 midnights. Coding Level of Care Code Acute Code for g Fwd Diagnoses Acute on chronic systolic congestive heart failure I50.23 Heart failure type: systolic Heart failure chronicity: acute on chronic PAD (peripheral artery disease) I73.9 Acute kidney injury N17.9 Ischemic cardiomyopathy I25.5 Diabetic peripheral neuropathy associated with type 2 diabetes mellitus E11.42 Dyslipidemia E78.5 COPD with acute exacerbation J44.1
[2023-12-05] MEDS: fenofibrate 145 mg Tablet PO (09:44)
[2023-12-05] MEDS: clopidogrel 75 mg Tablet PO (09:44)
[2023-12-05] MEDS: atorvastatin 40 mg Tablet PO (09:44)
[2023-12-05] MEDS: aspirin 81 mg EC Tablet PO (09:44)
[2023-12-05] MEDS: sertraline 50 mg Tablet 25 MG PO (09:44)
[2023-12-05] MEDS: predniSONE 20 mg Tablet 40 MG PO (09:44)
[2023-12-05] MEDS: metoprolol tartrate 25 mg Tablet 12.5 MG PO ×2 (09:56→21:45)
[2023-12-05] MEDS: insulin glargine 100 units/1 mL 15 UNIT SUBCUT (09:58)
--- NOTE | 2023-12-05 10:19 | PC.NURSE ---
hospitalist orders Received verbal orders readback to give 40 mg IVP lasix one time around noon, nicotine patch 14 mg daily. Creatinine level relayed to doc tejinder today is 1.8, she is ok to have the IVP Lasix.
[2023-12-05 12:13] LABS: Glucose Point of Care 125 mg/dL (70-110)
--- NOTE | 2023-12-05 12:24 | PM.PN ---
Subjective Subjective: This morning. Patient sitting up in bed. Says she feels a little better. Nurse reported that earlier this morning patient was feeling short of breath and she gets short of breath every time she exerts herself. Patient says she just wants to sleep for now. Lasix 40 IV x 1 given. Patient is awaiting LifeVest placement. Taking over her care today from Dr. Agudelo. Reviewed her chart. Vitals/I&O/Wt Last Vital Signs Temp 98.1 F 12/05/23 11:32 Pulse 90 12/05/23 11:32 Resp 16 12/05/23 07:43 BP 104/70 12/05/23 11:32 Pulse Ox 94 12/05/23 11:32 O2 Del Method Room Air 12/05/23 11:32 O2 Flow Rate 2 12/05/23 00:00 12/04/23 12/05/23 12/05/23 22:59 06:59 14:59 Intake Total 640 / 1058.0 197.65 / 1255.65 300 / 300 Output Total 750 / 1340 250 / 1590 Balance -110 / -282.0 -52.35 / -334.35 300 / 300 Weight last 48 hrs Weight 61.235 kg Physical Exam Narrative: General: No acute distress, Neck is supple, Cardiovascular regular rate and rhythm, no murmur, borderline tachycardic. Lungs diminished breath sounds bilaterally, lungs clear to auscultation bilaterally today.. Abdomen is soft with positive bowel sounds. 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 Lower extremity edema improved. Urinary Catheter Management: Molina: Cath Placed During This Visit: yes Reason for Continuing Indwelling Catheter: Other Urinary Catheter Date of Insertion: 12/05/23 Urinary Catheter Time of Insertion: 02:37 Data 12/04/23 21:14 12/05/23 05:47 Micro: Microbiology 12/01/23 09:55 Gram Stain - Final Sputum - Expectorated Sputum Sputum Culture - Final Haemophilus influenzae A&P Assessment and plan (1) Congestive heart failure: Patient presents with acute congestive heart failure, likely systolic Echocardiogram completed 12/02/23 EF noted to 25%. Previous echo EF around 40% done at [facility] IVP one time order this am She was markedly hypertensive at outside institution, likely secondary to her heart failure. Blood pressure today fairly normal Continue metoprolol per cardiology Continue to hold ELMER inhibitor,due to worsening kidney function. BMP tomorrow, monitor at that time whether p.o. Lasix can be reinitiated Cardiology has been consulted. From my understanding LifeVest will be recommended, medication adjustment. Nuclear stress test showed some small areas of reversibility, and some significant areas of reduced nuclear isotope uptake. Cardiology at this point recommends medical management. Patient awaiting LifeVest. Qualifiers: Heart failure type: systolic Heart failure chronicity: acute on chronic Qualified Code(s): I50.23 - Acute on chronic systolic (congestive) heart failure (2) Pneumonia: Patient presents with pneumonia, has significant sputum production. She has consolidation on chest x-ray 12/01/23. Sputum culture mixed bruce on prelim Continue Rocephin, Zithromax. Blood cultures low yield currently. Will reconsider if fever develops. (3) COPD with acute exacerbation: Patient has COPD exacerbation manifested by wheezing. She is a long-term smoker. Continue Prednisone 40 mg daily Continue DuoNeb every 4 hours Continue Budesonide twice daily (4) Acute kidney injury: Likely cardiorenal. Cannot completely exclude chronic kidney disease Avoid anti-inflammatories Renal function slightly improved, repeat tomorrow (5) Hyperkalemia: Potassium elevated this morning, Kayexalate ordered Repeat potassium this afternoon Continue to hold ARB currently (6) PAD (peripheral artery disease): Patient with known severe peripheral vascular disease to left lower extremity Monitor for severe skin breakdown Continue aspirin (7) Diabetes: Continue long-acting insulin, but reduced dosing secondary to renal dysfunction. Prednisone may also increase blood glucose. Continue to follow closely. Qualifiers: Diabetes mellitus type: type 2 Diabetes mellitus shelter insulin use: without watermelon harvesting supervisor use Diabetes mellitus complication status: with circulatory complication Diabetes mellitus complication detail: with other circulatory complications Qualified Code(s): E11.59 - Type 2 diabetes mellitus with other circulatory complications Plan Tobacco dependency. Encourage abstaining. She refuses nicotine patch Depression/anxiety. Start Zoloft 25 mg p.o. daily. Risk and benefits discussed. Multiple other medical problems as outlined in past medical history Allow natural . Extensive discussion with the patient. She exhibits understanding. She still wants to be aggressively treated, just not receive CPR, intubation, etc. Lovenox for DVT prophylaxis Attestations Medical Necessity Statement*: Needs continued hospital stay, for close follow-up with hyperkalemia, renal function, CHF with resumption of diuresis. Diagnoses Acute on chronic systolic congestive heart failure I50.23 Heart failure type: systolic Heart failure chronicity: acute on chronic Pneumonia J18.9 COPD with acute exacerbation J44.1 Acute kidney injury N17.9 Hyperkalemia E87.5 PAD (peripheral artery disease) I73.9 Type 2 diabetes mellitus with other circulatory complication, without long-term current use of insulin E11.59 Diabetes mellitus type: type 2 Diabetes mellitus shelter insulin use: without watermelon harvesting supervisor use Diabetes mellitus complication status: with circulatory complication Diabetes mellitus complication detail: with other circulatory complications
[2023-12-05] MEDS: FUROsemide 10 mg/mL SDV 4mL 40 MG IVP (13:04)
[2023-12-05] MEDS: nicotine 14 mg Patch 1 PATCH TRANSDERMA (13:05)
[2023-12-05 13:57] LABS: Partial Thromboplastin Time 54.6 SECONDS (23.9-36.7)
[2023-12-05] MEDS: heparin 5,000 unit/mL INJ 1 mL IV (15:01)
[2023-12-05] MEDS: heparin drip 25,000 UNIT/500 ML PREMIX 16 UNIT IV (15:02)
--- NOTE | 2023-12-05 15:07 | PC.NURSE ---
pt will need to have a battery check/recharged by tomorrow if she is not going to be going home yet this weekend per Wes Martinez
[2023-12-05 16:52] LABS: Glucose Point of Care 129 mg/dL (70-110)
[2023-12-05 19:36] LABS: Glucose Point of Care 274 mg/dL (70-110)
[2023-12-05 21:36] LABS: Glucose Point of Care 298 mg/dL (70-110)
[2023-12-05] MEDS: insulin lispro 100 unit/1 mL SUBCUT (21:47)
[2023-12-05 21:54] LABS: Partial Thromboplastin Time 73.8 SECONDS (23.9-36.7)
[2023-12-06] VITALS (8 sets, daily range): BP systolic 129–155; BP diastolic 79–99; PULSE 75–95; RESP 18–27; TEMP 36.1–37.1; O2SAT 93–98
[2023-12-06] MEDS: ipratropium-albuterol 3 mL Neb INHALATION ×3 (00:42→11:52)
[2023-12-06] MEDS: heparin drip 25,000 UNIT/500 ML PREMIX 16 UNIT IV (02:37)
[2023-12-06 04:23] LABS: Hematocrit 31.3 % (36-47); Lymphocytes # 1.9 10^3/uL (0.8-4.8); Lymphocytes % 23.8 %; Mean Corpuscular HGB Conc 30.7 g/dL (30-55); Mean Corpuscular Volume 87.9 fl (85-98); Mean Platelet Volume 11.1 fL (7.4-10.4); Monocytes # 0.4 10^3/uL (0.2-0.9); Monocytes % 4.5 %; Neutrophils # 5.75 10^3/uL (1.8-7.7); Neutrophils % 71.1 %; Nucleated Red Blood Cells % 0 %; Platelet Count 424 10^3/cmm (157-399); Red Blood Count 3.56 10^6/uL (3.85-5.65); Red Cell Distribution Width 15.8 % (12.1-15.1); White Blood Count 8.08 10^3/uL (3.29-11.43)
[2023-12-06 04:35] LABS: Partial Thromboplastin Time 63.5 SECONDS (23.9-36.7)
[2023-12-06 04:40] LABS: Anion Gap 11.8 (5-19); Blood Urea Nitrogen 46 mg/dL (6-20); Calcium 8.2 mg/dL (8.5-10.5); Carbon Dioxide 24 mmol/L (22-29); Chloride 96 mmol/L (98-107); Creatinine Clr Calc Pharmacy 38.8349; Glomerular Filtration Rate 31.7 mL/min (90-130); Glucose 163 mg/dL (65-115); Osmolality Calculated 279 mOsm/kg (285-295); Potassium 4.8 mmol/L (3.5-5.1); Sodium 127 mmol/L (136-145)
[2023-12-06] MEDS: cefTRIAXone 1,000 MG in sodium chloride 0.9% (plus) 50 ML 100 MG IV (06:18)
[2023-12-06 06:40] LABS: Glucose Point of Care 193 mg/dL (70-110)
--- NOTE | 2023-12-06 08:02 | PM.PN ---
Subjective Subjective: seen this morning no acute events overnight pt awaiting lifevest pt still in positive 1200 net balance Vitals/I&O/Wt Last Vital Signs Temp 97.2 F L 12/06/23 04:00 Pulse 92 12/06/23 06:00 Resp 22 H 12/06/23 04:00 BP 155/99 12/06/23 04:00 Pulse Ox 93 12/06/23 04:00 O2 Del Method Room Air 12/06/23 04:00 O2 Flow Rate 2 12/05/23 00:00 12/05/23 12/06/23 12/06/23 22:59 06:59 14:59 Intake Total 483.817 / 1023.817 159.883 / 1183.700 Output Total 700 / 700 1200 / 1900 Balance -216.183 / 323.817 -1040.117 / -716.300 Weight last 48 hrs Weight 61.235 kg Physical Exam Narrative: General: No acute distress, Neck is supple, Cardiovascular regular rate and rhythm, no murmur, borderline tachycardic. Lungs diminished breath sounds bilaterally, lungs clear to auscultation bilaterally today.. Abdomen is soft with positive bowel sounds. 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 Lower extremity edema improved. Urinary Catheter Management: Molina: Cath Placed During This Visit: yes Reason for Continuing Indwelling Catheter: Accurate Measurement of Urinary Output in Critically Ill Patients Urinary Catheter Date of Insertion: 12/05/23 Urinary Catheter Time of Insertion: 02:37 Data 12/06/23 03:06 12/06/23 03:06 A&P Assessment and plan (1) Congestive heart failure: Patient presents with acute congestive heart failure, likely systolic Echocardiogram completed 12/02/23 EF noted to 25%. Previous echo EF around 40% done at [facility] Lasix IVP one time order this am She was markedly hypertensive at outside institution, likely secondary to her heart failure. Blood pressure today fairly normal Continue metoprolol per cardiology Continue to hold ELMER inhibitor,due to worsening kidney function. BMP tomorrow, monitor at that time whether p.o. Lasix can be reinitiated Cardiology has been consulted. From my understanding LifeVest will be recommended, medication adjustment. Nuclear stress test showed some small areas of reversibility, and some significant areas of reduced nuclear isotope uptake. Cardiology at this point recommends medical management. Patient awaiting LifeVest. Qualifiers: Heart failure type: systolic Heart failure chronicity: acute on chronic Qualified Code(s): I50.23 - Acute on chronic systolic (congestive) heart failure (2) Pneumonia: Patient presents with pneumonia, has significant sputum production. She has consolidation on chest x-ray 12/01/23. Sputum culture mixed bruce on prelim Continue Rocephin, Zithromax. Blood cultures low yield currently. Will reconsider if fever develops. (3) COPD with acute exacerbation: Patient has COPD exacerbation manifested by wheezing. She is a long-term smoker. Continue Prednisone 40 mg daily Continue DuoNeb every 4 hours Continue Budesonide twice daily (4) Acute kidney injury: Likely cardiorenal. Cannot completely exclude chronic kidney disease Avoid anti-inflammatories Renal function slightly improved, repeat tomorrow (5) Hyperkalemia: Potassium elevated this morning, Kayexalate ordered Repeat potassium this afternoon Continue to hold ARB currently (6) PAD (peripheral artery disease): Patient with known severe peripheral vascular disease to left lower extremity Monitor for severe skin breakdown Continue aspirin (7) Diabetes: Continue long-acting insulin, but reduced dosing secondary to renal dysfunction. Prednisone may also increase blood glucose. Continue to follow closely. Qualifiers: Diabetes mellitus type: type 2 Diabetes mellitus termite helper insulin use: without termite helper use Diabetes mellitus complication status: with circulatory complication Diabetes mellitus complication detail: with other circulatory complications Qualified Code(s): E11.59 - Type 2 diabetes mellitus with other circulatory complications Plan Tobacco dependency. Encourage abstaining. She refuses nicotine patch Depression/anxiety. Start Zoloft 25 mg p.o. daily. Risk and benefits discussed. Multiple other medical problems as outlined in past medical history Allow natural . Extensive discussion with the patient. She exhibits understanding. She still wants to be aggressively treated, just not receive CPR, intubation, etc. Lovenox for DVT prophylaxis PLan 3/3 Pt still in positive 1200 cc net balance I will add lasix 40 iv x1 today. Continue to wait for lifevest - DC heparin drip - no plan for angiogram for now - may need as outpatient at later time pt DNR/DNI discussed with cardiology Attestations Medical Necessity Statement*: awaiting life vest Diagnoses Acute on chronic systolic congestive heart failure I50.23 Heart failure type: systolic Heart failure chronicity: acute on chronic Pneumonia J18.9 COPD with acute exacerbation J44.1 Acute kidney injury N17.9 Hyperkalemia E87.5 PAD (peripheral artery disease) I73.9 Type 2 diabetes mellitus with other circulatory complication, without long-term current use of insulin E11.59 Diabetes mellitus type: type 2 Diabetes mellitus termite helper insulin use: without correction use Diabetes mellitus complication status: with circulatory complication Diabetes mellitus complication detail: with other circulatory complications
[2023-12-06] MEDS: budesonide 0.5 mg/2 mL Neb INHALATION (08:47)
[2023-12-06] MEDS: insulin lispro 100 unit/1 mL SUBCUT (08:52)
[2023-12-06] MEDS: azithromycin 500 MG in sodium chloride 0.9% 250 ML 250 MG IV (08:52)
[2023-12-06] MEDS: insulin glargine 100 units/1 mL 15 UNIT SUBCUT (08:53)
[2023-12-06] MEDS: ALPRAZolam 0.5 mg Tablet PO (08:53)
[2023-12-06] MEDS: sertraline 50 mg Tablet 25 MG PO (08:54)
[2023-12-06] MEDS: predniSONE 20 mg Tablet 40 MG PO (08:55)
[2023-12-06] MEDS: aspirin 81 mg EC Tablet PO (08:55)
[2023-12-06] MEDS: FUROsemide 40 mg Tablet PO (08:55)
[2023-12-06] MEDS: nicotine 14 mg Patch 1 PATCH TRANSDERMA (08:55)
[2023-12-06] MEDS: fenofibrate 145 mg Tablet PO (08:55)
[2023-12-06] MEDS: atorvastatin 40 mg Tablet PO (08:55)
[2023-12-06] MEDS: clopidogrel 75 mg Tablet PO (08:55)
[2023-12-06] MEDS: metoprolol tartrate 25 mg Tablet 12.5 MG PO ×2 (09:13→10:38)
--- NOTE | 2023-12-06 09:25 | P.PN_ITS ---
Subjective 2 Subjective: Patient doing well. No chest pain. Vitals/I&O/Wt Last Vital Signs Temp 98.7 F 12/06/23 09:16 Pulse 95 12/06/23 09:16 Resp 20 H 12/06/23 09:16 BP 136/82 12/06/23 09:16 Pulse Ox 98 12/06/23 09:16 O2 Del Method Room Air 12/06/23 09:16 O2 Flow Rate 2 12/05/23 00:00 12/05/23 12/06/23 12/06/23 22:59 06:59 14:59 Intake Total 483.817 / 1023.817 159.883 / 1183.700 360 / 360 Output Total 700 / 700 1200 / 1900 Balance -216.183 / 323.817 -1040.117 / -716.300 360 / 360 Weight last 48 hrs Weight 135 lb Physical Exam 2 Narrative: GENERAL: Patient is alert, awake and oriented x3. [] NECK: No jugular vein distension. [] HEENT: No cyanosis. No icterus. No pallor. [] HEART: Regular S1 and S2. No murmur, rub or gallop. [] LUNGS: Diminished air entry CENTRAL NERVOUS SYSTEM: Grossly nonfocal. [] Urinary Catheter Management: Molina: Cath Placed During This Visit: yes Reason for Continuing Indwelling Catheter: Accurate Measurement of Urinary Output in Critically Ill Patients Urinary Catheter Date of Insertion: 12/05/23 Urinary Catheter Time of Insertion: 02:37 Data 12/06/23 03:06 12/06/23 03:06 A&P Assessment and plan (1) Congestive heart failure: Qualifiers: Heart failure type: systolic Heart failure chronicity: acute on chronic Qualified Code(s): I50.23 - Acute on chronic systolic (congestive) heart failure (2) PAD (peripheral artery disease): (3) Acute kidney injury: (4) Ischemic cardiomyopathy: (5) Diabetic peripheral neuropathy associated with type 2 diabetes mellitus: (6) Dyslipidemia: (7) COPD with acute exacerbation: Plan Patient is stable. No chest pain. LifeVest put on. Optimizing heart failure medical therapy Close I&O's. Thank you for involving us care of this patient. Stable to be discharged home from cardiology standpoint. Please call with questions. Attestations 2 Medical Necessity Statement*: Care expected to cross 2 midnights. Coding Level of Care Code Acute Code for Chg Fwd Diagnoses Acute on chronic systolic congestive heart failure I50.23 Heart failure type: systolic Heart failure chronicity: acute on chronic PAD (peripheral artery disease) I73.9 Acute kidney injury N17.9 Ischemic cardiomyopathy I25.5 Diabetic peripheral neuropathy associated with type 2 diabetes mellitus E11.42 Dyslipidemia E78.5 COPD with acute exacerbation J44.1
--- NOTE | 2023-12-06 11:31 | P.DS_ITS ---
Discharge Providers Date of Admission: 12/01/23 05:49 Date of Discharge: December 06, 2023 Attending Provider at Admission: Tamir Rubio Attending Provider at Discharge: Saima Aggarwal MD Primary Care Provider: Slade Brandon Diagnoses at Discharge Discharge Diagnosis (1) Congestive heart failure: Status: Acute Qualifiers: Heart failure chronicity: acute on chronic Heart failure type: systolic Qualified Code(s): I50.23 - Acute on chronic systolic (congestive) heart failure (2) PAD (peripheral artery disease): Status: Acute Permanent problem details: Known severe disease to the left lower extremity which she reports is inoperable (3) Acute kidney injury: Status: Acute (4) Ischemic cardiomyopathy: Status: Acute (5) Diabetic peripheral neuropathy associated with type 2 diabetes mellitus: Status: Acute (6) Dyslipidemia: Status: Acute (7) COPD with acute exacerbation: Status: Acute Reason for Visit Reason for Visit: Chest Pain Hospital Course Hospital Course Admitted for shortness of breath and was admitted for decompensation of heart failure. EF 20 to 25%. Troponin initially elevated however delta troponin negative. She was diuresed with IV Lasix and then switched over to oral. Initially was placed on heparin drip however it was discontinued since angiogram was not going to be pursued secondary to elevated creatinine. Cardiology followed the patient and was on board the whole time. Patient will benefit from prophylactic ICD. LifeVest was set up for the patient. She is to follow-up as an outpatient with cardiology. She would benefit from referral to advanced heart failure clinic. Patient will need to follow-up as an outpatient with cardiology for stress test. Entresto has been started at discharge. Lasix has been increased to 60 daily orally. Patient will need close follow up after discharge and carries high risk of re- admission due to her medical condition. Physical Exam Narrative: General: No acute distress, Neck is supple, Cardiovascular regular rate and rhythm, no murmur, borderline tachycardic. Lungs diminished breath sounds bilaterally, lungs clear to auscultation bilaterally today.. Abdomen is soft with positive bowel sounds. 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 Lower extremity edema improved. Urinary Catheter Management: Molina: Cath Placed During This Visit: yes Reason for Continuing Indwelling Catheter: Accurate Measurement of Urinary Output in Critically Ill Patients Urinary Catheter Date of Insertion: 12/05/23 Urinary Catheter Time of Insertion: 02:37 Discharge Data Studies Completed and Pending Completed Studies During Hospitalization Category Date Time Status CXRP [XR chest 1V portable [id number]] Routine Exams 12/03/23 03:33 Completed Cardiac Stress Test MIBI [Sestamibi Stress Test Request Exams 12/02/23 18:44 Draft ] Routine NM archana perf SPECT r/s* [id number] Routine Nuc Med 12/03/23 18:44 [place] [id number] Routine Ultrasound 12/01/23 07:43 Completed CV. echo complete* [id number] Routine Ultrasound 12/01/23 06:32 Completed Pending at discharge Category Date Time Status Basic Metabolic Panel AM LABS Lab 12/07/23 04:00 Ordered Complete Blood Count w/Auto AM LABS Lab 12/07/23 04:00 Ordered Platelet Count Q2D Lab 12/08/23 04:00 Ordered Radiology Impressions Chest X-Ray 12/03/23 03:33 IMPRESSION: 1. Right middle lobe and retrocardiac opacification with flattening of the diaphragms and blunting of the bilateral costophrenic angles suggesting small pleural effusions. Nonspecific may represent atelectasis, aspiration, infection. 2. Findings suggest interstitial lung disease. Correlate with patient history. Laboratory Results WBC 8.08 10^3/uL (3.29-11.43) 12/06/23 03:06 RBC 3.56 10^6/uL (3.85-5.65) L 12/06/23 03:06 Hgb 9.60 g/dL (11.27-16.99) L 12/06/23 03:06 Hct 31.3 % (36-47) L 12/06/23 03:06 MCV 87.9 fl (85-98) 12/06/23 03:06 MCH 27.0 pg (27-33) 12/06/23 03:06 MCHC 30.7 g/dL (30-55) 12/06/23 03:06 RDW 15.8 % (12.1-15.1) H 12/06/23 03:06 Plt Count 424 10^3/cmm (157-399) H 12/06/23 03:06 MPV 11.1 fL (7.4-10.4) H 12/06/23 03:06 Neut % (Auto) 71.1 % 12/06/23 03:06 Lymph % (Auto) 23.8 % 12/06/23 03:06 [place] % (Auto) 4.5 % 12/06/23 03:06 Eos % (Auto) 0.0 % 12/06/23 03:06 Baso % (Auto) 0.0 % 12/06/23 03:06 Neut # (Auto) 5.75 10^3/uL (1.8-7.7) 12/06/23 03:06 Lymph # (Auto) 1.9 10^3/uL (0.8-4.8) 12/06/23 03:06 [place] # (Auto) 0.4 10^3/uL (0.2-0.9) 12/06/23 03:06 Eos # (Auto) 0.0 10^3/uL (0.0-0.8) 12/06/23 03:06 Baso # (Auto) 0.0 10^3/uL (0.0-0.1) 12/06/23 03:06 Nucleated RBC % (auto) 0 % 12/06/23 03:06 Nucleated RBCs # 0.0 /100WBC 12/06/23 03:06 APTT 63.5 SECONDS (23.9-36.7) H 12/06/23 03:06 Sodium 127 mmol/L (136-145) L 12/06/23 03:06 Potassium 4.8 mmol/L (3.5-5.1) 12/06/23 03:06 Chloride 96 mmol/L (98-107) L 12/06/23 03:06 Carbon Dioxide 24 mmol/L (22-29) 12/06/23 03:06 Anion Gap 11.8 (5-19) 12/06/23 03:06 BUN 46 mg/dL (6-20) H 12/06/23 03:06 Creatinine 1.7 mg/dL (0.5-0.9) H 12/06/23 03:06 GFR Calculation 31.7 mL/min (90-130) L 12/06/23 03:06 Glucose 163 mg/dL (65-115) H 12/06/23 03:06 POC Glucose 193 mg/dL (70-110) H 12/06/23 06:28 Calculated Osmolality 279 mOsm/kg (285-295) L 12/06/23 03:06 Calcium 8.2 mg/dL (8.5-10.5) L 12/06/23 03:06 Magnesium 2.0 mg/dL (1.7-2.3) 12/06/23 03:06 Total Bilirubin 0.2 mg/dL (0.15-1.2) 12/02/23 04:11 AST 17 U/L (0-32) 12/02/23 04:11 ALT 8 U/L (0-33) 12/02/23 04:11 Alkaline Phosphatase 95 U/L (35-105) 12/02/23 04:11 Troponin T 5th Gen ng/L 140 ng/L (0-10) H* 12/04/23 14:54 Troponin T Hi Sens 6Hr 131.7 ng/L (0-10) H 12/04/23 21:14 Troponin T Hi Sens 6Hr Delta 3.7 ng/L (0-12) 12/04/23 21:14 Total Protein 5.8 g/dL (6.6-8.7) L 12/02/23 04:11 Albumin 2.6 g/dL (3.5-5.2) L 12/02/23 04:11 Globulin 3.2 g/dL (1.3-4.6) 12/02/23 04:11 TSH 1.39 uIU/mL (0.27-4.20) 12/02/23 04:11 Urine Color Yellow (Yellow) 12/02/23 16:40 Urine Appearance Clear (CLEAR) 12/02/23 16:40 Urine pH 5 (5-7) 12/02/23 16:40 Ur Specific Nixon 1.015 (1.005-1.030) 12/02/23 16:40 Urine Protein 3+ (Negative) H 12/02/23 16:40 Urine Glucose (UA) 1+ (Normal) H 12/02/23 16:40 Urine Ketones Negative (Negative) 12/02/23 16:40 Urine Blood Neg (Negative) 12/02/23 16:40 Urine Nitrate Negative (Negative) 12/02/23 16:40 Urine Bilirubin Neg (Negative) 12/02/23 16:40 Urine Urobilinogen Norm mg/dL (Negative) 12/02/23 16:40 Ur Leukocyte Esterase Negative (Negative) 12/02/23 16:40 Urine RBC 0-4 /hpf (0-2) H 12/02/23 16:40 Urine WBC 0-4 /hpf (0-5) H 12/02/23 16:40 Ur Squamous Epith Cells 5-10 /hpf (0-5) H 12/02/23 16:40 Amorphous Sediment Trace /hpf 12/02/23 16:40 Urine Bacteria 1+ /hpf (NONE) H 12/02/23 16:40 Fine Granular Casts 0-4 /lpf H 12/02/23 16:40 Urine Mucus 1+ /hpf 12/02/23 16:40 Urine Yeast 1+ /hpf H 12/02/23 16:40 Vitals Last Vital Signs Temp 98.7 F 12/06/23 09:16 Pulse 95 12/06/23 09:16 Resp 20 H 12/06/23 09:16 BP 136/82 12/06/23 09:16 Pulse Ox 98 12/06/23 09:16 O2 Del Method Room Air 12/06/23 09:16 O2 Flow Rate 2 12/05/23 00:00 Discharge Plan Discharge Patient Disposition: Home Condition: Stable Prescriptions: New insulin glargine 100 unit/mL Solution 15 unit SUBCUT DAILY Qty: 3 0RF amoxicillin-pot clavulanate 875-125 mg tablet 1 tab PO BID Qty: 8 0RF sertraline 50 mg Tablet 25 mg PO DAILY Qty: 30 0RF Entresto 24-26 mg Tablet 1 tab PO BID Qty: 60 0RF metoprolol succinate [Toprol XL] 25 mg tablet extended release 24 hr 25 mg PO DAILY Qty: 30 0RF Continued insulin aspart U-100 [Novolog U-100 Insulin aspart] 100 unit/mL solution See Rx Instructions .ROUTE .COMPLEX Rx Instructions: take 3x day with meals per sliding scale. <139= no insulin, 140-175 = 1 unit, 176-200 = 2 units, 201-250 = 3 units, 251- 299 = 5 units, >300 = 5 units and contact office. Daily maximum is 15units. ascorbic acid (vitamin C) 500 mg Tablet 500 mg PO DAILY (DME) blood-glucose meter Misc MISCELLANEOUS (DME) blood sugar diagnostic Strip MISCELLANEOUS (DME) Lancets Regular Misc MISCELLANEOUS atorvastatin 40 mg tablet 40 mg PO DAILY Qty: 30 0RF aspirin 81 mg tablet,delayed release (DR/EC) 81 mg PO DAILY Qty: 30 0RF multivitamin,tx-minerals Tablet 1 tab PO DAILY Qty: 30 0RF fenofibrate nanocrystallized 145 mg Tablet 145 mg PO DAILY Qty: 30 0RF Changed furosemide 40 mg tablet 60 mg PO DAILY Qty: 30 0RF Rx Instructions: May take extra tab daily if needed for Shortness of breath or swelling Held potassium chloride 20 mEq tablet extended release 20 meq PO DAILY Hold Instructions: have repeat labs done, start after seen by pcp Discontinued carvedilol [Coreg] 6.25 mg tablet 6.25 mg PO BID Rx Instructions: must administer with a meal/food Lantus U-100 Insulin 100 unit/mL solution 22 unit SUBCUT BID losartan 25 mg tablet 25 mg PO DAILY Discharge Orders: Discharge Order (Routine); Ordered 12/06/23 Ordered By: Saima Aggarwal Referrals: Luli Riley MD [Physician] - 1 month Slade Brandon [Primary Care Provider] - 4-7 days Nae Hyde FNP [Nurse Practitioner] - 7-10 days Discharge Diet: Cardiac and Diabetic Discharge Activity: Increase activity as tolerated Patient Instructions: Heart Failure (DC), CHF Stoplight, Opioid Safety Discharge Attestations Time Spent in Discharge Care*: greater than 30 min Quality Metrics Clinical Quality Measures [ No reported AMI, CVA or VTE this stay] Coding Level of Care Code 48281 Total time (in minutes) for Discharge: 42 Diagnoses Acute on chronic systolic congestive heart failure I50.23 Heart failure chronicity: acute on chronic Heart failure type: systolic PAD (peripheral artery disease) I73.9 Acute kidney injury N17.9 Ischemic cardiomyopathy I25.5 Diabetic peripheral neuropathy associated with type 2 diabetes mellitus E11.42 Dyslipidemia E78.5 COPD with acute exacerbation J44.1
[2023-12-06 12:36] LABS: Glucose Point of Care 105 mg/dL (70-110)
[2023-12-06 13:42] LABS: Partial Thromboplastin Time 30.8 SECONDS (23.9-36.7)
--- NOTE | 2023-12-06 14:45 | PC.NURSE ---
discharge instructions educated pt on her new Rx, change dosage of her Lasix, stopped meds. educated pt on the discharge packet for chf. all [id number] are sent with parents and pt-clothes,journeyman painter, Life vest devices, wheelchair.
== END 2023-12-06 13:45 | disposition home or self-care (01) | DRG 193 ==
PROVIDERS: Internal Medicine; Internal Medicine Cardiovascular Disease; Admitting Provider Internal Medicine; PCP Family Medicine; Visit Provider Internal Medicine
DX: J18.9 Pneumonia, unspecified organism (principal); I50.23 Acute on chronic systolic (congestive) heart failure; I13.0 Hypertensive heart and chronic kidney disease with heart failure and stage 1 through stage 4 chronic kidney disease, or unspecified chronic kidney disease; J44.0 Chronic obstructive pulmonary disease with (acute) lower respiratory infection; J44.1 Chronic obstructive pulmonary disease with (acute) exacerbation; N17.9 Acute kidney failure, unspecified; N18.9 Chronic kidney disease, unspecified; E11.22 Type 2 diabetes mellitus with diabetic chronic kidney disease; J43.9 Emphysema, unspecified; F17.210 Nicotine dependence, cigarettes, uncomplicated; Z66 Do not resuscitate; E78.5 Hyperlipidemia, unspecified; E11.42 Type 2 diabetes mellitus with diabetic polyneuropathy; E11.51 Type 2 diabetes mellitus with diabetic peripheral angiopathy without gangrene; I25.10 Atherosclerotic heart disease of native coronary artery without angina pectoris; E87.5 Hyperkalemia; I25.5 Ischemic cardiomyopathy; F32.A Depression, unspecified; F41.9 Anxiety disorder, unspecified; Z79.82 Long term (current) use of aspirin; Z79.4 Long term (current) use of insulin; Z89.511 Acquired absence of right leg below knee; Z95.1 Presence of aortocoronary bypass graft; Z89.422 Acquired absence of other left toe(s); Z89.412 Acquired absence of left great toe
CPT/HCPCS: 36415; 36416; 51702; 71045; 78452; 80048; 80053; 81001; 82962; 83735; 84132; 84443; 84484; 85025; 85049; 85730; 87070; 87205; 93017; 93306; 93971; 94640; 96372; 96375; 96376; A9500; J0456; J0696; J1644; J1650; J1815; J1940; J2785; J3490; J7050; J7512; J7626

== ENCOUNTER → 2024-04-29 08:28 | Outpatient (BNVA) | payer MEDICAID, SELFPAY | PROVIDERS: PCP Family Medicine; Visit Provider Nurse Practitioner Family | DX: I11.0 Hypertensive heart disease with heart failure (principal); I50.23 Acute on chronic systolic (congestive) heart failure | CPT/HCPCS: 99214 ==

== ENCOUNTER 2024-05-25 12:45 | Outpatient (CLI) | payer MEDICAID, SELFPAY ==
--- NOTE | 2024-05-25 12:45 | USCV_ITS ---
Jacquelin Fry Age: 53 Gender: F : 1970 Exam Date: 05/25/2024 13:15 Ordering Phys: Nae Hyde Technologist: CT Exam Location: [facility] [place]_ Indication: ef BP: 124 / 70 HR: 62 Rhythm: Sinus Technical Quality: Adequate MEASUREMENTS (Male / Female) Normal Values 2D ECHO LVOT Diameter 2.1 cm LV Ejection Fraction MOD 4C 28.0 % LV Ejection Fraction MOD 2C 34.3 % LV Ejection Fraction 2C AL 34.7 % LA Diameter 3.9 cm RA Systolic Volume 4C AL 25.3 ml RA Systolic Volume 4C MOD 24.9 ml LA Sys Volume AL 41.6 cm cubed LA Sys Volume Index AL 24.8 cm cubed/m squared Aorta at Sinotubular Diameter 2.4 cm IVC Diameter 2.0 cm M-MODE LA Ao Ratio MM 1.4 AV Cusp Separation MM 2.1 cm DOPPLER AV Peak Velocity 106.0 cm/s LVOT Peak Velocity 66.0 cm/s AV Area Cont Eq vti 2.5 cm squared AV Area Cont Eq pk 2.2 cm squared MV Peak Velocity 176.0 cm/s MV Area PHT 2.3 cm squared Mitral E to A Ratio 2.6 TR Peak Velocity 332.5 cm/s TR Peak Gradient 44.2 mmHg TR Mean Velocity 252.0 cm/s TR Mean Gradient 28.2 mmHg TR Velocity Time Integral 127.0 cm TV Peak E Velocity 59.0 cm/s Right Atrial Pressure 3.0 mmHg Pulmonary Artery Systolic Pressu 47.2 mmHg FINDINGS Left Ventricle LV systolic function is moderate to severely reduced with EF of 30-35%. Moderate global hypokinesis. Severe hypokinesis of inferior and inferoseptal peñaloza. Right Ventricle Normal in size and function Right Atrium Normal in size Left Atrium Normal in size Mitral Valve Mitral valve annuloplasty ring seen. Mild mitral regurgitation. Aortic Valve Structurally normal aortic valve. No significant stenosis. Tricuspid Valve Mild tricuspid regurgitation. Pulmonary artery systolic pressure is 45 to 50 mmHg. This is consistent with moderate pulmonary hypertension Pulmonic Valve Mild pulmonic regurgitation. Pericardium Normal Aorta Normal in size IVC Appears to be normal CONCLUSIONS LV systolic function is moderate to severely reduced with EF of 30-35%. Above mentioned regional wall motion abnormalities. Mild mitral regurgitation Mild tricuspid regurgitation Moderate pulmonary hypertension Mild pulmonic regurgitation Compared to prior echocardigram from 11/2023, no significant changes are seen. Andrés Adams MD (Electronically Signed) Final Date: 28 May 2024 13:34 S
== END 2024-05-25 13:06 | disposition home or self-care (01) ==
PROVIDERS: PCP Family Medicine; Visit Provider Nurse Practitioner Family
DX: I50.23 Acute on chronic systolic (congestive) heart failure (principal); I50.20 Unspecified systolic (congestive) heart failure; I27.20 Pulmonary hypertension, unspecified
CPT/HCPCS: 93306

== ENCOUNTER → 2024-07-19 11:35 | Outpatient (BNVA) | payer MEDICAID, SELFPAY | PROVIDERS: PCP Family Medicine; Visit Provider Internal Medicine Cardiovascular Disease | DX: R06.02 Shortness of breath (principal) | CPT/HCPCS: 36415; 80048; 83880; 99214 ==

== ENCOUNTER → 2024-08-16 10:10 | Outpatient (BNVA) | payer MEDICAID, SELFPAY | PROVIDERS: PCP Family Medicine; Visit Provider Nurse Practitioner Family | DX: I50.23 Acute on chronic systolic (congestive) heart failure (principal); I25.5 Ischemic cardiomyopathy; I73.9 Peripheral vascular disease, unspecified; F17.210 Nicotine dependence, cigarettes, uncomplicated | CPT/HCPCS: 36415; 80048; 83880; 99214 ==